=== PATIENT | male | born 1950 | race Caucasian/White ===

== ENCOUNTER 2017-05-09 15:18 | Emergency (ER) | payer MEDICARE ==
[~2017-05-09] VITALS: Ht 180.3 cm; Wt 77.1 kg
[~2017-05-09 15:18] MED LIST: GABA400C PO; METH10OR11 PO
[2017-05-09 15:20] VITALS: BP 124/87
[2017-05-09] MEDS ORDERED: TETRACAINE HCL/PF 0.5% UD 2 ML BOTTLE ONE (16:13)
[2017-05-09] MEDS ORDERED: ACETAMINOPHEN ES 500 MG TABLET ONE (16:13)
[2017-05-09] MEDS ORDERED: FLUORESCEIN SODIUM OPHTH 1 EA STRIP ONE (16:13)
[2017-05-09] MEDS ORDERED: TETRACAINE HCL/PF 0.5% UD 2 ML BOTTLE EACHEYE ONE (16:30)
[2017-05-09] MEDS ORDERED: ACETAMINOPHEN 325 MG TABLET PO ONE (16:30)
[2017-05-09] MEDS ORDERED: FLUORESCEIN SODIUM OPHTH 1 EA STRIP OP ONE (16:30)
--- NOTE | 2017-05-09 16:40 | NUR ---
PT REFUSING VISUAL ACUITY TEST DONE. AGITATED, DEMANDING STRONGER PAIN MEDICATION. STATES HE WANTED TO LEAVE.
--- NOTE | 2017-05-09 16:42 | NUR ---
PT LEFT ED AGAINST [facility].
== END 2017-05-09 16:44 | disposition left against medical advice (07) ==
LOC: ER 15:20
DX: H53.143 Visual discomfort, bilateral (principal); G89.29 Other chronic pain; G35 Multiple sclerosis; Z98.890 Other specified postprocedural states
CPT/HCPCS: 99283; A4606; Z7610

== ENCOUNTER 2017-06-11 22:24 | Emergency (ER) | payer MEDICARE ==
--- NOTE | 2017-06-11 22:30 | NUR ---
CALLED TO TRIAGED BUT NOT IN WAITING AREA
--- NOTE | 2017-06-11 22:48 | NUR ---
NOT IN WAITING AREA. LEFT
== END 2017-06-11 22:50 | disposition left against medical advice (07) ==
LOC: ER 22:27
DX: Z53.21 Procedure and treatment not carried out due to patient leaving prior to being seen by health care provider (principal)

== ENCOUNTER 2017-06-12 01:13 | Emergency (ER) | payer MEDICARE ==
[~2017-06-12] VITALS: Ht 170.2 cm; Wt 79.4 kg
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
--- NOTE | 2017-06-12 01:35 | NUR ---
pt transported to radiology for ct.
--- NOTE | 2017-06-12 01:47 | NUR ---
PT BACK FROM RADIOLOGY. PENDING CT HEAD RESULT.
--- NOTE | 2017-06-12 02:18 | NUR ---
Patient discharged to home in stable condition. Written and verbal after care instructions given. Patient verbalizes understanding of instruction. ambulatory with a steady gait with proper use of walker.
[2017-06-12 02:37] VITALS: BP 136/68
== END 2017-06-12 02:38 | disposition home or self-care (01) ==
LOC: ER 01:15
DX: S01.01XA Laceration without foreign body of scalp, initial encounter (principal); G35 Multiple sclerosis; V89.2XXA Person injured in unspecified motor-vehicle accident, traffic, initial encounter; Y93.89 Activity, other specified; Y92.488 Other paved roadways as the place of occurrence of the external cause; Y99.8 Other external cause status
CPT/HCPCS: 12002; 70450; 99284; A4606; A6403 ×2; Z7610

== ENCOUNTER 2017-06-24 12:46 | Inpatient (IN) | payer MEDICARE ==
[~2017-06-24] VITALS: Ht 172.7 cm; Wt 90.7 kg
[2017-06-24] MEDS ORDERED: MAG HYDROX/AL HYDROX/SIMETH 30 ML UDC ONE (13:02)
[2017-06-24] MEDS: MAG HYDROX/AL HYDROX/SIMETH 30 ML UDC PO ONE ×2 (13:02→13:05)
--- NOTE | 2017-06-24 13:06 | NUR ---
LAB AT FOR BLOOD DRAW. PT REFUSED MED. AWARE.
[2017-06-24 13:16] LABS: BASOPHILS % (AUTO) 0.1 % (0.0-2.0); EOSINOPHILS % (AUTO) 0.1 % (0.0-6.0); HEMATOCRIT 45 % (39-51); LYMPHOCYTES # (AUTO) 0.6 /CMM (0.8-4.8); LYMPHOCYTES % (AUTO) 5.3 % (20.0-44.0); MEAN CORPUSCULAR HEMOGLOBIN 28 PG (26.0-33.0); MEAN CORPUSCULAR HGB CONC 33 g/dl (31.0-36.0); MEAN CORPUSCULAR VOLUME 84 fL (80-96); MONOCYTES # (AUTO) 0.3 /CMM (0.1-1.30); MONOCYTES % (AUTO) 2.5 % (2.0-12.0); NEUTROPHILS # (AUTO) 10.8 /CMM (1.8-8.9); PLATELET COUNT (AUTO) 175 /CMM (150-450); RDW COEFFICIENT OF VARIATION 12.8 (11.5-15.0); RED BLOOD CELL COUNT(AUTO) 5.39 MIL/uL (4.5-6.0); WHITE BLOOD COUNT (AUTO) 11.7 K/uL (4.3-11.0)
--- NOTE | 2017-06-24 13:20 | NUR ---
PT [facility]ANS FOR ABD PAIN FROM HOME. PER PT HE'S BEEN ON OPIODS FOR YEARS ALWAYS HAD CONSTIPATION PROBLEMS. REQUESTS FOR PAIN MEDS. SEEN BY MD FOR EVaL. VSS. SAFETY AND COMFORT MEASURES PROVIDED. WILL MONITOR.
[2017-06-24 13:24] LABS: CALCIUM, SERUM 9.6 mg/dL (8.5-10.1); CARBON DIOXIDE 30 mmol/L (21-32); CHLORIDE 101 mmol/L (98-107); GLUCOSE 140 mg/dL (74-106); POTASSIUM 4.2 mmol/L (3.5-5.1); SODIUM SERUM 138 mmol/L (136-145); UREA NITROGEN, BLOOD 25 mg/dL (7-18)
[2017-06-24 13:29] LABS: ALANINE AMINOTRANSFERASE 22 U/L (12-78); ALBUMIN 4.1 g/dL (3.4-5.0); ALKALINE PHOSPHATASE 123 U/L (46-116); ASPARTATE AMINOTRANSFERASE 19 U/L (15-37); BILIRUBIN,DIRECT 0.1 mg/dL (0.0-0.2); BILIRUBIN,TOTAL 0.6 mg/dL (0.2-1.0); LIPASE 136 U/L (73-393); TOTAL PROTEIN, SERUM 8.2 g/dL (6.4-8.2)
[2017-06-24 13:31] LABS: TROPONIN I < 0.017 ng/mL (0.00-0.056)
[2017-06-24] MEDS ORDERED: ONDANSETRON HCL/PF - ER 4 MG/2 ML VIAL IV ONE (14:30)
[2017-06-24] MEDS ORDERED: IV NS 0.9% 1,000 ML IV ONE (14:30)
--- NOTE | 2017-06-24 14:30 | NUR ---
PT UNABLE TO GIVE URINE SAMPLE.
--- NOTE | 2017-06-24 14:40 | NUR ---
IV ACCESS STARTED. MEDICATED ORDERED.
[2017-06-24] MEDS ORDERED: ONDANSETRON HCL/PF 4 MG/2 ML VIAL ONE (15:21)
[2017-06-24] MEDS ORDERED: IV D5/0.45 NACL 1,000 ML IV ONE (16:00)
[2017-06-24 16:06] LABS: APPEARANCE,URINE Slightly Cloudy (CLEAR); BILIRUBIN,URINE Negative (NEGATIVE); BLOOD, URINE Negative Ery/uL (NEGATIVE); KETONES,URINE Trace (NEGATIVE); LEUKOCYTE ESTERASE ,URINE Large (NEGATIVE); NITRITE, URINE Negative (NEGATIVE); PROTEIN,URINE Trace mg/dl (NEGATIVE); UGLUCOSE Negative (NEGATIVE); UROBILINOGEN,URINE 0.2 EU/dL (0.2)
[2017-06-24 16:08] LABS: COLOR,URINE Dark Yellow (YELLOW)
[2017-06-24 16:12] LABS: BACTERIA,URINE Rare /HPF (None Seen); RBC,URINE 0-3 /HPF (0-2); SQUAMOUS EPITHELIAL CELL,UR Few /HPF (None Seen); WBC,URINE 80-100 /HPF (0-3)
[2017-06-24] MEDS ORDERED: GABA800T2 PO (16:25)
[2017-06-24] MEDS ORDERED: METH10TA2 PO (16:25)
[2017-06-24] MEDS ORDERED: CLON1TAB4 PO (16:25)
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
--- NOTE | 2017-06-24 16:41 | NUR ---
CALLED DIONNA KHAN FOR ADMISSION
[2017-06-24] MEDS ORDERED: HYDROMORPHONE 1 MG/1 ML DISP.SYRIN IV ONE (17:00)
[2017-06-24] MEDS ORDERED: HYDROMORPHONE INJ 2 MG/ML DISP.SYRIN ONE (17:01)
[2017-06-24 18:00] VITALS: BP 104/61
[2017-06-24] MEDS ORDERED: IV NS 0.9% 1,000 ML IV PRN (18:25)
[2017-06-24] MEDS ORDERED: ONDANSETRON HCL/PF 4 MG/2 ML VIAL IVP PRN (18:30)
[2017-06-24] MEDS ORDERED: ENOXAPARIN SODIUM 40 MG/0.4 ML DISP.SYRIN SQ SCH (18:30)
[2017-06-24] MEDS ORDERED: ACETAMINOPHEN 325 MG TABLET PO PRN (18:30)
[2017-06-24] MEDS ORDERED: BISACODYL SUPP (10 MG) 10 MG/SUPP.RECT SUPP.RECT RC PRN (18:30)
[2017-06-24] MEDS ORDERED: LACTULOSE 10 G/15 ML UDC (PYXIS) PO PRN (18:30)
[2017-06-24] MEDS ORDERED: clonazePAM 1 MG TABLET PO PRN (18:30)
[2017-06-24] MEDS ORDERED: NA PHOS,M-B/NA PHOS,DI-BA 1 EA ENEMA RC PRN (18:30)
[2017-06-24] MEDS ORDERED: Z GUARD REMEDY 2 OZ OINT TP PRN (18:30)
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
[2017-06-24] MEDS: METHADONE HCL 10 MG TABLET PO SCH (19:07)
[2017-06-24 20:00] VITALS: BP 121/64
[2017-06-24] MEDS ORDERED: GABAPENTIN 400 MG CAPSULE PO ONE (20:30)
--- NOTE | 2017-06-24 20:32 | NUR ---
RECEIVED PATIENT IN ROOM ALERT ORIENTED X 4 COMPLAIN OF PAIN ASKING FOR NEURONTIN PAGED THE DR AND RECEIVED THE ORDER FOR NEURONTIN 800 MG. WILL CONTINUES TO MONITOR THE PATIENT.
[2017-06-24] MEDS ORDERED: CEFTRIAXONE 1 G in IV D5W 50 ML IV SCH (22:00)
[2017-06-24] MEDS ORDERED: SENNOSIDES 8.6 MG TABLET PO SCH (22:00)
[2017-06-25] MEDS: GABAPENTIN 400 MG CAPSULE PO SCH ×3 (05:57→12:22)
--- NOTE | 2017-06-25 06:38 | NUR ---
NO CHANGES FROM BASE LINE PATIENT REMAIN THE SAME CONDITIONS VITAL SIGN STABLE BREATHING EVEN UNLABORED PAIN MEDICATIONS ADMINISTERED PRESCRIBED. WILL CONTINUES TO MONITOR THE PATIENT WILL ENDORSE TO THE MORNING NURSE TO CONTINUITY OF CARE.
[2017-06-25 07:11] LABS: BASOPHILS % (AUTO) 0.1 % (0.0-2.0); EOSINOPHILS # (AUTO) 0.1 /CMM (0.0-0.7); EOSINOPHILS % (AUTO) 1.9 % (0.0-6.0); HEMATOCRIT 38 % (39-51); HEMOGLOBIN 12.9 g/dL (13.5-17.5); LYMPHOCYTES # (AUTO) 2.1 /CMM (0.8-4.8); LYMPHOCYTES % (AUTO) 28.4 % (20.0-44.0); MEAN CORPUSCULAR HEMOGLOBIN 29 PG (26.0-33.0); MEAN CORPUSCULAR HGB CONC 34 g/dl (31.0-36.0); MEAN CORPUSCULAR VOLUME 86 fL (80-96); MONOCYTES # (AUTO) 0.4 /CMM (0.1-1.30); MONOCYTES % (AUTO) 5.3 % (2.0-12.0); NEUTROPHILS # (AUTO) 4.7 /CMM (1.8-8.9); NEUTROPHILS % (AUTO) 64.3 % (43.0-81.0); PLATELET COUNT (AUTO) 134 /CMM (150-450); RDW COEFFICIENT OF VARIATION 13.7 (11.5-15.0); RED BLOOD CELL COUNT(AUTO) 4.42 MIL/uL (4.5-6.0); WHITE BLOOD COUNT (AUTO) 7.3 K/uL (4.3-11.0)
--- NOTE | 2017-06-25 07:15 | NUR ---
RN OPEN NOTES RECEIVED REPORT FROM SUPERVISOR [employer] RN. PATIENT IS IN BED WITH HIS EYES CLOSED. EASILY AROUSED TO CALLING HIS NAME AND TOUCH. TO NO SIGNS AND SYMPTOMS OF DISTRESS. BED IN LOW POSITION, LOCKED AND TWO SIDE RAILS ARE UP. CALL LIGHT WITHIN REACH FOR SAFETY. WILL CONTINUE TO MONITOR AND ASSESS PATIENT THROUGH OUT MY SHIFT
[2017-06-25 07:19] LABS: ALBUMIN 3.5 g/dL (3.4-5.0); BILIRUBIN,TOTAL 0.7 mg/dL (0.2-1.0); CALCIUM, SERUM 8.7 mg/dL (8.5-10.1); CREATININE 0.9 mg/dL (0.6-1.3); MAGNESIUM 2.2 mg/dL (1.8-2.4); PHOSPHORUS 3.2 mg/dL (2.5-4.9); POTASSIUM 3.6 mmol/L (3.5-5.1)
[2017-06-25 07:30] LABS: THYROID STIMULATING HORMONE 0.895 uIU/mL (0.358-3.74)
[2017-06-25 08:00] VITALS: BP 110/59
[2017-06-25] MEDS: METHADONE HCL 10 MG TABLET PO SCH (08:58)
[2017-06-25] MEDS ORDERED: METHADONE HCL 10 MG TABLET PO SCH (09:00)
[2017-06-25] MEDS ORDERED: BARIUM SULFATE 98% 135 ML SUSP.RECON PO ONE ×2 (09:04→09:16)
[2017-06-25] MEDS ORDERED: DIATR MEGLU/DIATRIZOATE SODIUM 120 ML BOTTLE (GASTROGRAPHIN) ONE ×2 (09:04→09:16)
--- NOTE | 2017-06-25 09:15 | NUR ---
PATIENT IS OFF THE FLOOR FOR SMALL BOWEL FOLLOW THROUGH
--- NOTE | 2017-06-25 10:55 | NUR ---
PATIENT IS BACK TO FLOOR FROM RADIOLOGY
[2017-06-25] MEDS ORDERED: NA PHOS,M-B/NA PHOS,DI-BA 1 EA ENEMA RC ONE (12:30)
[2017-06-25] MEDS ORDERED: FLU VACC QS 2017-18(36MOS+)/PF 0.5 ML DISP.SYRIN IM ONE (13:30)
[2017-06-25] MEDS ORDERED: PNEUMOCOCCAL 23-VAL P-SAC VAC 0.5 ML VIAL SQ ONE (13:30)
[2017-06-25] MEDS ORDERED: CEPH-570 PO (13:45)
--- NOTE | 2017-06-25 16:50 | NUR ---
LEARNING PROGRAM MANAGER NOTES DISCHARGE ORDER RECEIVED AND CARRIED OUT. PATIENT IS LEAVING IN A STABLE CONDITION. NO SIGNS AND SYMPTOMS OF DISTRESS. DENIED PAIN. PATIENT IS ALERT AND ORIENTED. PRESCRIPTION GAVE TO PATIENT. ALL DISCHARGE INSTRUCTION EXPLAINED TO PATIENT AND PATIENT VERBALIZE UNDERSTANDING. ALL PERSONAL BELONGING WITH PATIENT AT TIME OF DISCHARGE. PATIENT SIGNED BOTH DISCHARGE AND BELONGING LIST FORMS; PLACED IN THE CHART. SKIN IS INTACT, NO PICTURES NEEDED. FLU AND PNEUMONIA VACCINES HAS BEEN ADMINISTERED. IV SITE REMOVED. ID BANDS REMOVED. PATIENT PICKED UP BY HIS SON IN A PRIVATE CAR. PATIENT DISCHARGED HOME. NO NEW CONCERNS UPON DISCHARGE.
== END 2017-06-25 16:50 | disposition home or self-care (01) | DRG 389 ==
LOC: ER 12:47 → MEDSG2 17:15
PROVIDERS: ADMIT Nurse Practitioner Acute Care; ATTEND Nurse Practitioner Acute Care
DX: K56.7 Ileus, unspecified (principal); N39.0 Urinary tract infection, site not specified; G35 Multiple sclerosis; G62.9 Polyneuropathy, unspecified; G89.4 Chronic pain syndrome; Z98.890 Other specified postprocedural states; K59.03 Drug induced constipation; T40.3X5A Adverse effect of methadone, initial encounter; Y92.009 Unspecified place in unspecified non-institutional (private) residence as the place of occurrence of the external cause; K56.609 Unspecified intestinal obstruction, unspecified as to partial versus complete obstruction; Z79.899 Other long term (current) drug therapy
CPT/HCPCS: 36415; 74250-TC; 80048-TC; 80053-TC; 80061-TC; 80076-TC; 81000-TC; 83690-TC; 83735-TC; 84100-TC; 84443-TC; 84484-TC; 85025-TC; 87081-TC; 90732; A4606; J0696; J1170; J1650; J2405; J3490; J7030; J7060; Q2036; Q9963; Z7610

== ENCOUNTER 2020-03-13 07:10 | Emergency (ER) | payer MEDICARE ==
[~2020-03-13] VITALS: Ht 170.2 cm; Wt 81.6 kg
[~2020-03-13 07:10] MED LIST changes: +CEPH-570 PO; +CLON1TAB12 PO; -GABA400C PO; +GABA800T11 PO; -METH10OR11 PO; +METH10TA2 PO
[2020-03-13 07:13] VITALS: BP 103/67
--- NOTE | 2020-03-13 09:03 | NUR ---
Patient discharged to home in stable condition. Written and verbal after care instructions given. Patient verbalizes understanding of instruction.
== END 2020-03-13 09:04 | disposition home or self-care (01) ==
LOC: ER 07:13
DX: M54.5 Low back pain (principal); G89.29 Other chronic pain; G35 Multiple sclerosis; Z98.890 Other specified postprocedural states; Z79.899 Other long term (current) drug therapy
CPT/HCPCS: 72131-TC

== ENCOUNTER 2022-04-29 14:56 | Outpatient (CLI) | payer MEDICARE ==
[2022-04-29 15:34] LABS: ABG BASE EXCESS 2.4 mmol/L; ABG OXYGEN SATURATION 94.8 % (92.0-98.5); ABG PCO2 44.9 mmHg (35.0-45.0); ABG PH 7.407 (7.350-7.450); COHb 0.7 % (0.5-1.5); MetHb 0.3 % (0.0-1.5); O2Hb 93.9 % (94.0-97.0); SITE, ABG Right Radial; VENT MODE, BG room air
== END 2022-04-29 23:59 | disposition home or self-care (01) ==
LOC: RAD 14:56
PROVIDERS: ATTEND Internal Medicine Pulmonary Disease
DX: R06.02 Shortness of breath (principal)
CPT/HCPCS: 36600; 71045-TC

== ENCOUNTER 2022-08-26 02:25 | Emergency (ER) | payer MEDICARE ==
[~2022-08-26] VITALS: Ht 170.2 cm; Wt 81.6 kg
[2022-08-26 02:43] VITALS: BP 158/83
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
[2022-08-26] MEDS ORDERED: MORPHINE SULFATE INJ 4 MG/ML DISP.SYRIN ONE (02:50)
[2022-08-26] MEDS ORDERED: MORPHINE SULFATE INJ 2 MG/ML DISP.SYRIN ONE (02:50)
[2022-08-26] MEDS ORDERED: MORPHINE SULFATE INJ 2 MG/ML DISP.SYRIN IV ONE (03:00)
--- NOTE | 2022-08-26 04:40 | NUR ---
[facility] AT PT'S BEDSIDE TO D/C PT HOME. VSS. REPORT GIVEN TO [facility] EMT FOR [facility]
== END 2022-08-26 05:17 | disposition home or self-care (01) ==
LOC: ER 02:26
DX: M25.512 Pain in left shoulder (principal); G89.29 Other chronic pain; G35 Multiple sclerosis; Z98.890 Other specified postprocedural states; Z79.899 Other long term (current) drug therapy; W18.30XA Fall on same level, unspecified, initial encounter; Y93.89 Activity, other specified; Y92.89 Other specified places as the place of occurrence of the external cause; Y99.8 Other external cause status
CPT/HCPCS: 99284; 96372; 73030; 73110; J2270 ×2

== ENCOUNTER 2023-04-14 13:01 | Emergency (ER) | payer MEDICARE ==
[~2023-04-14] VITALS: Ht 170.2 cm; Wt 81.6 kg
[2023-04-14 13:34] VITALS: BP 124/66; TEMP 98.3; O2SAT 95
== END 2023-04-14 17:56 ==
LOC: ER 13:07
DX: M25.561 Pain in right knee (principal); I10 Essential (primary) hypertension; J44.9 Chronic obstructive pulmonary disease, unspecified; Z98.890 Other specified postprocedural states; Z79.899 Other long term (current) drug therapy; Z88.1 Allergy status to other antibiotic agents
CPT/HCPCS: 73564-TC

== ENCOUNTER 2023-08-14 20:19 | Inpatient (IN) | payer MEDICARE, OTHER ==
[~2023-08-14] VITALS: Ht 172.7 cm; Wt 93.0 kg
[2023-08-14] MEDS ORDERED: CEFEPIME 1 GM VIAL ONE (21:31)
[2023-08-14] MEDS: CEFEPIME 1 GM in IV D5W 50 ML IV ONE (21:35)
[2023-08-14] MEDS ORDERED: VANCOMYCIN 1 GM /D5W 250 ML PB IV ONE (21:55)
[2023-08-14 21:59] LABS: BASOPHILS % (AUTO) 0.1 % (0.0-2.0); EOSINOPHILS % (AUTO) 0.2 % (0.0-6.0); HEMATOCRIT 33 % (39-51); HEMOGLOBIN 10.7 g/dL (13.5-17.5); LYMPHOCYTES # (AUTO) 0.7 K/uL (0.8-4.8); LYMPHOCYTES % (AUTO) 5.6 % (20.0-44.0); MEAN CORPUSCULAR HEMOGLOBIN 23 PG (26.0-33.0); MEAN CORPUSCULAR HGB CONC 32 g/dl (31.0-36.0); MEAN CORPUSCULAR VOLUME 74 fL (80-96); MONOCYTES # (AUTO) 0.7 K/uL (0.1-1.30); MONOCYTES % (AUTO) 6.3 % (2.0-12.0); NEUTROPHILS # (AUTO) 10.3 K/uL (1.8-8.9); NEUTROPHILS % (AUTO) 87.8 % (43.0-81.0); PLATELET COUNT (AUTO) 233 K/uL (150-450); RED BLOOD CELL COUNT(AUTO) 4.55 MIL/uL (4.5-6.0); RED CELL DISTRIBUTION WIDTH 17.1 % (11.5-15.0); WHITE BLOOD COUNT (AUTO) 11.7 K/uL (4.3-11.0)
[2023-08-14] MEDS: VANCOMYCIN 1 GM in IV D5W 250 ML IV ONE (22:00)
[2023-08-14 22:13] LABS: APPEARANCE,URINE CLOUDY (CLEAR); BILIRUBIN,URINE 1+ (NEGATIVE); BLOOD, URINE 3+ Ery/uL (NEGATIVE); COLOR,URINE YELLOW (YELLOW); KETONES,URINE NEGATIVE (NEGATIVE); LEUKOCYTE ESTERASE ,URINE 3+ (NEGATIVE); NITRITE, URINE NEGATIVE (NEGATIVE); PH,URINE 8.5 (5.0-8.0); PROTEIN,URINE 2+ mg/dl (NEGATIVE); UGLUCOSE NEGATIVE (NEGATIVE)
[2023-08-14 22:18] LABS: INR 1.21 (0.91-1.10); PROTHROMBIN TIME 12.7 SECS (9.2-11.1)
[2023-08-14 22:22] LABS: ADD URINE CULTURE YES; BACTERIA,URINE 4+ /HPF (None Seen); RBC,URINE 51-80 /HPF (0-2); SQUAMOUS EPITHELIAL CELL,UR 0-2 /HPF (None Seen); TRIPLE PHOSPHATE CRYSTAL,UR Few /HPF (None Seen); WBC,URINE 51-80 /HPF (0-3)
[2023-08-14 22:26] LABS: CALCIUM, SERUM 8.8 mg/dL (8.5-10.1); CARBON DIOXIDE 27 mmol/L (21-32); CHLORIDE 99 mmol/L (98-107); CREATININE 1.4 mg/dL (0.6-1.3); GLUCOSE 120 mg/dL (74-106); POTASSIUM 4.1 mmol/L (3.5-5.1); SODIUM SERUM 136 mmol/L (136-145); UREA NITROGEN, BLOOD 31 mg/dL (7-18)
[2023-08-14] MEDS ORDERED: clonazePAM 1 MG TABLET PO PRN (22:30)
[2023-08-14] MEDS ORDERED: ONDANSETRON HCL/PF 4 MG/2 ML VIAL IVP PRN (22:30)
[2023-08-14 22:32] LABS: ALANINE AMINOTRANSFERASE 17 U/L (12-78); ALBUMIN 2.5 g/dL (3.4-5.0); ALKALINE PHOSPHATASE 94 U/L (46-116); ASPARTATE AMINOTRANSFERASE 25 U/L (15-37); BILIRUBIN,DIRECT 0.2 mg/dL (0.0-0.2); BILIRUBIN,TOTAL 0.6 mg/dL (0.2-1.0); TOTAL PROTEIN, SERUM 7.6 g/dL (6.4-8.2)
[2023-08-14 22:38] LABS: LACTIC ACID 1.1 mmol/L (0.4-2.0)
[2023-08-14 22:58] LABS: ANISOCYTOSIS 1+; BAND % (MANUAL) 2 % (0.0-5.0); BASOPHILS % (MANUAL) 0 % (0.0-2.0); EOSINOPHILS % (MANUAL) 0 % (0-4); HYPOCHROMASIA 1+; LYMPHOCYTES % (MANUAL) 8 % (16-48); MONOCYTES % (MANUAL) 5 % (0-11.0); NEUTROPHILS % (MANUAL) 85 (42-76); OVALOCYTES 1+; PLATELET ESTIMATE ADEQUATE
[2023-08-14 23:42] VITALS: BP 127/59; TEMP 97.5; O2SAT 96
[2023-08-15] MEDS: IV NS 0.9% 1,000 ML IV SCH (00:52)
[2023-08-15] MEDS: CEFTRIAXONE 1 G in IV D5W 50 ML IV SCH (00:52)
[2023-08-15 07:52] LABS: BASOPHILS % (AUTO) 0.2 % (0.0-2.0); EOSINOPHILS % (AUTO) 0.2 % (0.0-6.0); HEMATOCRIT 31 % (39-51); HEMOGLOBIN 9.5 g/dL (13.5-17.5); LYMPHOCYTES # (AUTO) 0.6 K/uL (0.8-4.8); LYMPHOCYTES % (AUTO) 5.1 % (20.0-44.0); MEAN CORPUSCULAR HEMOGLOBIN 23 PG (26.0-33.0); MEAN CORPUSCULAR HGB CONC 31 g/dl (31.0-36.0); MEAN CORPUSCULAR VOLUME 74 fL (80-96); MONOCYTES # (AUTO) 0.8 K/uL (0.1-1.30); NEUTROPHILS # (AUTO) 11.2 K/uL (1.8-8.9); NEUTROPHILS % (AUTO) 88.5 % (43.0-81.0); PLATELET COUNT (AUTO) 206 K/uL (150-450); RED BLOOD CELL COUNT(AUTO) 4.12 MIL/uL (4.5-6.0); RED CELL DISTRIBUTION WIDTH 17.1 % (11.5-15.0); WHITE BLOOD COUNT (AUTO) 12.6 K/uL (4.3-11.0)
[2023-08-15 08:00] VITALS: BP 160/90; TEMP 101.2; O2SAT 97
[2023-08-15] MEDS: CEFTRIAXONE 1GM BAG (ER ONLY) 50 ML IV ONE (08:00)
[2023-08-15 08:25] LABS: ALANINE AMINOTRANSFERASE 12 U/L (12-78); ALBUMIN 2.1 g/dL (3.4-5.0); ALKALINE PHOSPHATASE 92 U/L (46-116); ASPARTATE AMINOTRANSFERASE 26 U/L (15-37); BILIRUBIN,TOTAL 0.6 mg/dL (0.2-1.0); CALCIUM, SERUM 8.4 mg/dL (8.5-10.1); CARBON DIOXIDE 25 mmol/L (21-32); CHLORIDE 100 mmol/L (98-107); GLUCOSE 111 mg/dL (74-106); MAGNESIUM 2.2 mg/dL (1.8-2.4); PHOSPHORUS 3.6 mg/dL (2.5-4.9); SODIUM SERUM 135 mmol/L (136-145); TOTAL PROTEIN, SERUM 6.9 g/dL (6.4-8.2); UREA NITROGEN, BLOOD 26 mg/dL (7-18)
[2023-08-15] MEDS: METHADONE HCL 10 MG TABLET PO SCH (08:46)
[2023-08-15] MEDS: HEPARIN SODIUM, PORCINE 5000 UNITS/1 ML VIAL SQ SCH (08:47)
[2023-08-15] MEDS: hydrALAZINE HCL IV 20 MG VIAL IV PRN (08:48)
[2023-08-15] MEDS: ACETAMINOPHEN 325 MG TABLET PO PRN (08:48)
[2023-08-15] MEDS: GABAPENTIN 400 MG CAPSULE PO SCH (08:53)
[2023-08-15 09:30] VITALS: BP 116/90; TEMP 99; O2SAT 98
[2023-08-15] MEDS ORDERED: FERR325T23 PO (11:52)
[2023-08-15] MEDS ORDERED: CRAN425C6 PO (11:52)
[2023-08-15] MEDS ORDERED: LIDO30AD10 TP (11:52)
[2023-08-15] MEDS ORDERED: [UNRECOGNIZED DRUG - OTHER] TP (11:52)
[2023-08-15] MEDS ORDERED: DOCU100T2 PO (11:52)
[2023-08-15] MEDS ORDERED: MULT1CAP44 PO (11:52)
[2023-08-15] MEDS ORDERED: VITS42.53 TP (11:52)
[2023-08-15] MEDS ORDERED: DORZ10DR11 EACHEYE (11:52)
[2023-08-15] MEDS ORDERED: CITRUCEL PO (11:52)
[2023-08-15] MEDS ORDERED: MULT-213 PO (11:52)
[2023-08-15] MEDS ORDERED: DULO30CA2 PO (11:52)
[2023-08-15] MEDS ORDERED: ZINC50TA69 PO (11:52)
[2023-08-15] MEDS ORDERED: OXYC-128 PO (11:52)
[2023-08-15] MEDS ORDERED: DEXT15DR6 EACHEYE (11:52)
[2023-08-15] MEDS ORDERED: HEPA50007 SQ (11:52)
[2023-08-15] MEDS ORDERED: SENN-261 PO (11:52)
[2023-08-15] MEDS ORDERED: ALLA266C2 TP (11:52)
[2023-08-15] MEDS ORDERED: MAGN400O6 PO (11:52)
[2023-08-15] MEDS ORDERED: DICL100G34 TP (11:52)
[2023-08-15] MEDS ORDERED: CHOL100043 PO (11:52)
[2023-08-15] MEDS ORDERED: LORA10TA68 PO (11:52)
[2023-08-15] MEDS ORDERED: ASCO-352 PO (11:52)
[2023-08-15] MEDS ORDERED: NETA2.5D3 EACHEYE (11:52)
[2023-08-15] MEDS ORDERED: BISA10SU61 RC (11:52)
[2023-08-15] MEDS ORDERED: ACET-2605 PO ×2 (11:52)
[2023-08-15] MEDS ORDERED: ACET650S11 RC (11:52)
[2023-08-15] MEDS ORDERED: ACET-868 PO (11:52)
[2023-08-15 16:06] VITALS: BP 114/71; TEMP 100.4; O2SAT 96
[2023-08-15] MEDS: IV NS 0.9% 1,000 ML IV PRN (17:00)
[2023-08-15 20:00] VITALS: BP 96/58; TEMP 98.4; O2SAT 95
[2023-08-16 07:30] VITALS: BP 115/71; TEMP 100; O2SAT 90
[2023-08-16] MEDS: MUPIROCIN OINT 2% 22 GM TUBE NS SCH (08:56)
[2023-08-17 07:18] LABS: BASOPHILS % (AUTO) 0.1 % (0.0-2.0); EOSINOPHILS # (AUTO) 0.1 K/uL (0.0-0.7); EOSINOPHILS % (AUTO) 1.2 % (0.0-6.0); HEMATOCRIT 30 % (39-51); HEMOGLOBIN 9.4 g/dL (13.5-17.5); LYMPHOCYTES # (AUTO) 0.8 K/uL (0.8-4.8); LYMPHOCYTES % (AUTO) 12.4 % (20.0-44.0); MEAN CORPUSCULAR HEMOGLOBIN 23 PG (26.0-33.0); MEAN CORPUSCULAR HGB CONC 31 g/dl (31.0-36.0); MEAN CORPUSCULAR VOLUME 75 fL (80-96); MONOCYTES # (AUTO) 0.7 K/uL (0.1-1.30); MONOCYTES % (AUTO) 10.2 % (2.0-12.0); NEUTROPHILS # (AUTO) 4.9 K/uL (1.8-8.9); NEUTROPHILS % (AUTO) 76.1 % (43.0-81.0); PLATELET COUNT (AUTO) 179 K/uL (150-450); RED BLOOD CELL COUNT(AUTO) 4.03 MIL/uL (4.5-6.0); RED CELL DISTRIBUTION WIDTH 17.5 % (11.5-15.0); WHITE BLOOD COUNT (AUTO) 6.5 K/uL (4.3-11.0)
[2023-08-17 07:37] LABS: FERRITIN 306 ng/mL (8-388)
[2023-08-17 07:43] LABS: CALCIUM, SERUM 8.6 mg/dL (8.5-10.1); PHOSPHORUS 3.6 mg/dL (2.5-4.9); POTASSIUM 3.9 mmol/L (3.5-5.1)
[2023-08-17 08:36] VITALS: BP 141/66; TEMP 99.1; O2SAT 96
[2023-08-17 09:05] LABS: IRON, SERUM 9 ug/dl (50-175); TOTAL IRON BINDING CAPACITY 165 ug/dl (250-450)
[2023-08-17] MEDS: DAKINS QUARTER STRENGTH (0.125%) 480 ML BOTTLE TOP SCH (12:26)
[2023-08-17] MEDS: THERAHONEY GEL 1.5 OZ TUBE TP SCH (12:26)
[2023-08-17 15:59] VITALS: BP 148/79; TEMP 99.4; O2SAT 96
[2023-08-17] MEDS: ARGININE/GLUTAMINE/CALCIUM BMB 1 EACH POWD.PACK PO SCH (18:13)
[2023-08-17] MEDS: PROSOURCE / PROSTAT (PYXIS) 30 ML UDC PO SCH (18:13)
[2023-08-17] MEDS: MORPHINE SULFATE INJ 2 MG/ML DISP.SYRIN IV PRN (19:49)
[2023-08-17 20:00] VITALS: BP 154/83; TEMP 99.5; O2SAT 95
[2023-08-18 07:07] LABS: BASOPHILS % (AUTO) 0.3 % (0.0-2.0); EOSINOPHILS # (AUTO) 0.2 K/uL (0.0-0.7); EOSINOPHILS % (AUTO) 2.6 % (0.0-6.0); HEMATOCRIT 30 % (39-51); HEMOGLOBIN 9.6 g/dL (13.5-17.5); LYMPHOCYTES # (AUTO) 1.5 K/uL (0.8-4.8); LYMPHOCYTES % (AUTO) 23.1 % (20.0-44.0); MEAN CORPUSCULAR HEMOGLOBIN 23 PG (26.0-33.0); MEAN CORPUSCULAR HGB CONC 32 g/dl (31.0-36.0); MEAN CORPUSCULAR VOLUME 74 fL (80-96); MONOCYTES # (AUTO) 0.8 K/uL (0.1-1.30); NEUTROPHILS # (AUTO) 3.9 K/uL (1.8-8.9); PLATELET COUNT (AUTO) 187 K/uL (150-450); RED CELL DISTRIBUTION WIDTH 16.9 % (11.5-15.0); WHITE BLOOD COUNT (AUTO) 6.4 K/uL (4.3-11.0)
[2023-08-18 07:29] LABS: CALCIUM, SERUM 8.8 mg/dL (8.5-10.1); CARBON DIOXIDE 29 mmol/L (21-32); CHLORIDE 99 mmol/L (98-107); GLUCOSE 99 mg/dL (74-106); MAGNESIUM 1.9 mg/dL (1.8-2.4); PHOSPHORUS 3.5 mg/dL (2.5-4.9); POTASSIUM 3.9 mmol/L (3.5-5.1); SODIUM SERUM 137 mmol/L (136-145); UREA NITROGEN, BLOOD 18 mg/dL (7-18)
[2023-08-18 16:00] VITALS: BP 127/100; TEMP 99.4; O2SAT 94
[2023-08-18 16:05] LABS: HIV-1 p24 ANTIGEN NON REACTIVE (NONREACTIVE); HIV-1/2 ANTIBODY NON REACTIVE (NONREACTIVE)
[2023-08-18 20:00] VITALS: BP 141/64; TEMP 101.5; O2SAT 94
[2023-08-18] MEDS: SENNOSIDES 8.6 MG TABLET PO SCH (21:34)
[2023-08-18] MEDS: PANTOPRAZOLE 40 MG TABLET.DR PO SCH (21:34)
[2023-08-19 07:52] LABS: BASOPHILS % (AUTO) 0.2 % (0.0-2.0); EOSINOPHILS # (AUTO) 0.2 K/uL (0.0-0.7); EOSINOPHILS % (AUTO) 2.6 % (0.0-6.0); HEMATOCRIT 30 % (39-51); HEMOGLOBIN 9.4 g/dL (13.5-17.5); LYMPHOCYTES # (AUTO) 1.3 K/uL (0.8-4.8); LYMPHOCYTES % (AUTO) 14.7 % (20.0-44.0); MEAN CORPUSCULAR HEMOGLOBIN 23 PG (26.0-33.0); MEAN CORPUSCULAR HGB CONC 32 g/dl (31.0-36.0); MEAN CORPUSCULAR VOLUME 74 fL (80-96); MONOCYTES # (AUTO) 0.8 K/uL (0.1-1.30); MONOCYTES % (AUTO) 8.8 % (2.0-12.0); NEUTROPHILS # (AUTO) 6.3 K/uL (1.8-8.9); NEUTROPHILS % (AUTO) 73.7 % (43.0-81.0); PLATELET COUNT (AUTO) 207 K/uL (150-450); RED BLOOD CELL COUNT(AUTO) 4.04 MIL/uL (4.5-6.0); RED CELL DISTRIBUTION WIDTH 16.9 % (11.5-15.0); WHITE BLOOD COUNT (AUTO) 8.6 K/uL (4.3-11.0)
[2023-08-19 08:00] VITALS: BP 124/68; TEMP 99.1; O2SAT 85
[2023-08-19 08:19] LABS: CALCIUM, SERUM 8.9 mg/dL (8.5-10.1); CREATININE 0.9 mg/dL (0.6-1.3); MAGNESIUM 1.8 mg/dL (1.8-2.4); PHOSPHORUS 3.7 mg/dL (2.5-4.9); POTASSIUM 3.8 mmol/L (3.5-5.1)
[2023-08-19] MEDS: FERROUS SULFATE (325 MG) 325 MG/TAB TABLET PO SCH (08:51)
[2023-08-19] MEDS: ASCORBIC ACID 500 MG TABLET PO SCH (08:51)
[2023-08-19] MEDS: DOCUSATE SODIUM 100 MG CAPSULE PO SCH (08:51)
[2023-08-19 15:12] VITALS: BP 102/70; TEMP 98.8
[2023-08-19 15:13] VITALS: BP 127/72; TEMP 98.4; O2SAT 96
[2023-08-19 16:00] VITALS: BP 122/69; TEMP 98.6; O2SAT 94
[2023-08-19 20:00] VITALS: BP 126/60; TEMP 99; O2SAT 93
[2023-08-20 07:30] LABS: BASOPHILS % (AUTO) 0.3 % (0.0-2.0); EOSINOPHILS # (AUTO) 0.2 K/uL (0.0-0.7); EOSINOPHILS % (AUTO) 2.4 % (0.0-6.0); HEMATOCRIT 30 % (39-51); HEMOGLOBIN 9.5 g/dL (13.5-17.5); LYMPHOCYTES # (AUTO) 1.6 K/uL (0.8-4.8); LYMPHOCYTES % (AUTO) 20.9 % (20.0-44.0); MEAN CORPUSCULAR HEMOGLOBIN 24 PG (26.0-33.0); MEAN CORPUSCULAR HGB CONC 32 g/dl (31.0-36.0); MEAN CORPUSCULAR VOLUME 74 fL (80-96); MONOCYTES # (AUTO) 0.7 K/uL (0.1-1.30); NEUTROPHILS % (AUTO) 67.4 % (43.0-81.0); PLATELET COUNT (AUTO) 240 K/uL (150-450); RED BLOOD CELL COUNT(AUTO) 4.03 MIL/uL (4.5-6.0); WHITE BLOOD COUNT (AUTO) 7.5 K/uL (4.3-11.0)
[2023-08-20 07:51] LABS: CALCIUM, SERUM 8.8 mg/dL (8.5-10.1); CREATININE 0.9 mg/dL (0.6-1.3); MAGNESIUM 1.8 mg/dL (1.8-2.4); PHOSPHORUS 3.7 mg/dL (2.5-4.9); POTASSIUM 3.9 mmol/L (3.5-5.1)
[2023-08-20] MEDS: BISACODYL SUPP (10 MG) 10 MG/SUPP.RECT SUPP.RECT RC ONE (08:57)
[2023-08-20 09:00] VITALS: BP 144/68; TEMP 98.4; O2SAT 92
[2023-08-20] MEDS ORDERED: QUETIAPINE FUMARATE 25 MG TABLET PO PRN (09:30)
[2023-08-20 18:23] VITALS: BP 115/56; TEMP 99.3; O2SAT 94
[2023-08-20 20:00] VITALS: BP 129/70; TEMP 98.6; O2SAT 97
[2023-08-21 07:16] LABS: BASOPHILS % (AUTO) 0.4 % (0.0-2.0); EOSINOPHILS # (AUTO) 0.1 K/uL (0.0-0.7); EOSINOPHILS % (AUTO) 1.3 % (0.0-6.0); HEMATOCRIT 30 % (39-51); HEMOGLOBIN 9.5 g/dL (13.5-17.5); LYMPHOCYTES # (AUTO) 1.4 K/uL (0.8-4.8); LYMPHOCYTES % (AUTO) 15.1 % (20.0-44.0); MEAN CORPUSCULAR HEMOGLOBIN 23 PG (26.0-33.0); MEAN CORPUSCULAR HGB CONC 32 g/dl (31.0-36.0); MEAN CORPUSCULAR VOLUME 74 fL (80-96); MONOCYTES # (AUTO) 0.8 K/uL (0.1-1.30); MONOCYTES % (AUTO) 8.7 % (2.0-12.0); NEUTROPHILS # (AUTO) 6.8 K/uL (1.8-8.9); NEUTROPHILS % (AUTO) 74.5 % (43.0-81.0); PLATELET COUNT (AUTO) 270 K/uL (150-450); RED BLOOD CELL COUNT(AUTO) 4.09 MIL/uL (4.5-6.0); RED CELL DISTRIBUTION WIDTH 16.7 % (11.5-15.0); WHITE BLOOD COUNT (AUTO) 9.1 K/uL (4.3-11.0)
[2023-08-21 07:58] LABS: CALCIUM, SERUM 8.9 mg/dL (8.5-10.1); CARBON DIOXIDE 26 mmol/L (21-32); CHLORIDE 99 mmol/L (98-107); CREATININE 0.8 mg/dL (0.6-1.3); GLUCOSE 90 mg/dL (74-106); MAGNESIUM 1.9 mg/dL (1.8-2.4); PHOSPHORUS 3.8 mg/dL (2.5-4.9); POTASSIUM 3.9 mmol/L (3.5-5.1); SODIUM SERUM 137 mmol/L (136-145); UREA NITROGEN, BLOOD 17 mg/dL (7-18)
[2023-08-21 08:41] VITALS: BP 162/78; TEMP 98.4; O2SAT 94
[2023-08-21] MEDS: DULOXETINE HCL 30 MG CAPSULE.DR PO SCH (08:47)
[2023-08-21 16:04] VITALS: BP 165/82
== END 2023-08-21 16:40 | DRG 871 ==
LOC: ER 20:33 → TELE 23:15 → MED 23:33
PROVIDERS: ADMIT Internal Medicine; ATTEND Nurse Practitioner Family
DX: A41.59 Other Gram-negative sepsis (principal); E43 Unspecified severe protein-calorie malnutrition; N17.0 Acute kidney failure with tubular necrosis; G93.41 Metabolic encephalopathy; N39.0 Urinary tract infection, site not specified; F03.93 Unspecified dementia, unspecified severity, with mood disturbance; D68.9 Coagulation defect, unspecified; F03.918 Unspecified dementia, unspecified severity, with other behavioral disturbance; D50.9 Iron deficiency anemia, unspecified; D53.9 Nutritional anemia, unspecified; G89.4 Chronic pain syndrome; I10 Essential (primary) hypertension; J44.9 Chronic obstructive pulmonary disease, unspecified; E88.09 Other disorders of plasma-protein metabolism, not elsewhere classified; F32.A Depression, unspecified; K59.00 Constipation, unspecified; Z87.440 Personal history of urinary (tract) infections; G62.9 Polyneuropathy, unspecified; B96.4 Proteus (mirabilis) (morganii) as the cause of diseases classified elsewhere; Z22.322 Carrier or suspected carrier of Methicillin resistant Staphylococcus aureus; L89.156 Pressure-induced deep tissue damage of sacral region; G35 Multiple sclerosis; F39 Unspecified mood [affective] disorder; Z20.822 Contact with and (suspected) exposure to COVID-19; Z68.31 Body mass index [BMI] 31.0-31.9, adult
CPT/HCPCS: 36415; 71045-TC; 80048-TC; 80053-TC; 80076-TC; 81001; 82607-TC; 82728-TC; 83540-TC; 83605-TC; 83735-TC; 84100-TC; 84484-TC; 85025-TC; 85730-TC; 86803; 87040-TC; 87081-TC; 87086-TC; 87186-TC; 87806; 97110-TC; 97530-TC; A4223; G0378; J0360; J0692; J0696; J1644; J2270; J3370; J7030; J7050; J7060

== ENCOUNTER 2024-04-11 19:03 | Inpatient (IN) | payer OTHER, MEDICARE ==
[~2024-04-11] VITALS: Ht 177.8 cm; Wt 74.4 kg
[~2024-04-11 19:03] MED LIST changes: +ACET-2605 PO; +ACET-868 PO; +ACET650S11 RC; +ALLA266C2 TP; +ASCO-352 PO; +BISA10SU61 RC; -CEPH-570 PO; +CHOL100043 PO; +CITRUCEL PO; -CLON1TAB12 PO; +CRAN425C6 PO; +DEXT15DR6 EACHEYE; +DICL100G34 TP; +DOCU100T2 PO; +DORZ10DR11 EACHEYE; +DULO30CA2 PO; +FERR325T23 PO; +HEPA50007 SQ; +LIDO30AD10 TP; +LORA10TA68 PO; +MAGN400O6 PO; -METH10TA2 PO; +MULT-213 PO; +MULT1CAP44 PO; +NETA2.5D3 EACHEYE; +OXYC-128 PO; +SENN-261 PO; +VITS42.53 TP; +ZINC50TA69 PO; +[UNRECOGNIZED DRUG - OTHER] TP
[2024-04-11] MEDS ORDERED: VANCOMYCIN 1 GM /D5W 250 ML PB IV ONE (19:17)
[2024-04-11] MEDS ORDERED: CEFEPIME 1 GM VIAL ONE (19:17)
[2024-04-11 19:23] LABS: BASOPHILS % (AUTO) 0.1 % (0.0-2.0); EOSINOPHILS % (AUTO) 0.1 % (0.0-6.0); HEMATOCRIT 32 % (39-51); HEMOGLOBIN 10.3 g/dL (13.5-17.5); LYMPHOCYTES # (AUTO) 1.4 K/uL (0.8-4.8); LYMPHOCYTES % (AUTO) 7.6 % (20.0-44.0); MEAN CORPUSCULAR HEMOGLOBIN 27 PG (26.0-33.0); MEAN CORPUSCULAR HGB CONC 33 g/dl (31.0-36.0); MEAN CORPUSCULAR VOLUME 83 fL (80-96); MONOCYTES # (AUTO) 0.8 K/uL (0.1-1.30); MONOCYTES % (AUTO) 4.5 % (2.0-12.0); NEUTROPHILS # (AUTO) 16.3 K/uL (1.8-8.9); NEUTROPHILS % (AUTO) 87.7 % (43.0-81.0); PLATELET COUNT (AUTO) 430 K/uL (150-450); RED CELL DISTRIBUTION WIDTH 14.3 % (11.5-15.0); WHITE BLOOD COUNT (AUTO) 18.6 K/uL (4.3-11.0)
[2024-04-11] MEDS: CEFEPIME 2 GM in IV D5W 50 ML IV ONE (19:28)
[2024-04-11] MEDS: VANCOMYCIN 1 GM in IV D5W 250 ML IV ONE (19:28)
[2024-04-11] MEDS: IV NS 0.9% 1,000 ML BAG IV ONE (19:28)
[2024-04-11 19:36] LABS: INR 1.29 (0.91-1.10); PARTIAL THROMBOPLASTIN TIME 33.6 SEC (24.3-34.3); PROTHROMBIN TIME 13.4 SECS (9.2-11.1)
[2024-04-11 19:44] LABS: CALCIUM, SERUM 8.8 mg/dL (8.5-10.1); CARBON DIOXIDE 30 mmol/L (21-32); CHLORIDE 104 mmol/L (98-107); CREATININE 0.9 mg/dL (0.6-1.3); GLUCOSE 111 mg/dL (74-106); POTASSIUM 4.3 mmol/L (3.5-5.1); SODIUM SERUM 140 mmol/L (136-145); UREA NITROGEN, BLOOD 19 mg/dL (7-18)
[2024-04-11 19:51] LABS: ALANINE AMINOTRANSFERASE 30 U/L (12-78); ALBUMIN 1.9 g/dL (3.4-5.0); ALKALINE PHOSPHATASE 152 U/L (46-116); ASPARTATE AMINOTRANSFERASE 43 U/L (15-37); BILIRUBIN,DIRECT 0.2 mg/dL (0.0-0.2); BILIRUBIN,TOTAL 0.5 mg/dL (0.2-1.0); TOTAL PROTEIN, SERUM 7.3 g/dL (6.4-8.2)
[2024-04-11 19:55] LABS: LACTIC ACID 1.1 mmol/L (0.4-2.0)
[2024-04-11 20:02] LABS: APPEARANCE,URINE Cloudy (CLEAR); BILIRUBIN,URINE SMALL (NEGATIVE); BLOOD, URINE Small Ery/uL (NEGATIVE); COLOR,URINE YELLOW (YELLOW); KETONES,URINE Negative (NEGATIVE); LEUKOCYTE ESTERASE ,URINE Negative (NEGATIVE); NITRITE, URINE Negative (NEGATIVE); PROTEIN,URINE 100 mg/dl (NEGATIVE); UGLUCOSE Negative (NEGATIVE); UROBILINOGEN,URINE 0.2 EU/dL (0.2)
[2024-04-11 20:27] LABS: ADD URINE CULTURE YES; BACTERIA,URINE Many /HPF (None Seen); SQUAMOUS EPITHELIAL CELL,UR Few /HPF (None Seen)
[2024-04-11] MEDS ORDERED: MAGNESIUM HYDROXIDE 30 ML UDC PO PRN (21:00)
[2024-04-11] MEDS ORDERED: Z GUARD REMEDY 4 OZ OINT TP PRN (21:00)
[2024-04-11] MEDS ORDERED: oxyCODONE/APAP (5/325 MG) 1 UDTAB TABLET PO PRN (21:00)
[2024-04-11] MEDS ORDERED: MAG HYDROX/AL HYDROX/SIMETH 30 ML UDC PO PRN (21:00)
[2024-04-11] MEDS: VITAMINS A AND D 56.7 GM TUBE TP SCH (21:00)
[2024-04-11] MEDS ORDERED: ONDANSETRON HCL/PF 4 MG/2 ML VIAL IVP PRN (21:00)
[2024-04-11] MEDS ORDERED: NOREPINEPHRINE 8MG/250ML RTU 250 ML IV ONE (21:57)
[2024-04-11] MEDS ORDERED: Medication Not On Formulary EA (Netarsudil Mesylat/Latanoprost (Rocklatan 0.02%-0.005% E EACHEYE SCH (22:00)
[2024-04-11] MEDS: NOREPINEPHRINE 8 MG in IV D5W 242 ML IV PRN (22:07)
[2024-04-11] MEDS ORDERED: KETOROLAC TROMETHAMINE INJ 30 MG/ML VIAL IM PRN (22:30)
[2024-04-11 23:44] VITALS: BP 125/68; TEMP 98
[2024-04-12] VITALS (82 sets, daily range): BP systolic 59–179; BP diastolic 43–112; TEMP 97–98.2; O2SAT 87–100
[2024-04-12] MEDS: LIDOCAINE 5% (PATCH) 1 EA PATCH TP SCH (00:12)
[2024-04-12] MEDS: ENOXAPARIN SODIUM 40 MG/0.4 ML DISP.SYRIN SQ SCH (00:12)
[2024-04-12] MEDS ORDERED: CEFEPIME 1 GM VIAL ONE (02:54)
[2024-04-12 04:48] LABS: BASOPHILS % (AUTO) 0.2 % (0.0-2.0); EOSINOPHILS # (AUTO) 0.1 K/uL (0.0-0.7); EOSINOPHILS % (AUTO) 0.7 % (0.0-6.0); HEMATOCRIT 29 % (39-51); HEMOGLOBIN 9.4 g/dL (13.5-17.5); LYMPHOCYTES # (AUTO) 1.9 K/uL (0.8-4.8); LYMPHOCYTES % (AUTO) 11.3 % (20.0-44.0); MEAN CORPUSCULAR HEMOGLOBIN 28 PG (26.0-33.0); MEAN CORPUSCULAR HGB CONC 33 g/dl (31.0-36.0); MEAN CORPUSCULAR VOLUME 84 fL (80-96); MONOCYTES # (AUTO) 1.3 K/uL (0.1-1.30); NEUTROPHILS % (AUTO) 79.8 % (43.0-81.0); PLATELET COUNT (AUTO) 450 K/uL (150-450); RED BLOOD CELL COUNT(AUTO) 3.42 MIL/uL (4.5-6.0); WHITE BLOOD COUNT (AUTO) 16.3 K/uL (4.3-11.0)
[2024-04-12] MEDS: CEFEPIME 2 GM in IV D5W 100 ML IV SCH (04:57)
[2024-04-12 05:36] LABS: CALCIUM, SERUM 8.6 mg/dL (8.5-10.1); CARBON DIOXIDE 29 mmol/L (21-32); CHLORIDE 106 mmol/L (98-107); CREATININE 0.7 mg/dL (0.6-1.3); GLUCOSE 141 mg/dL (74-106); MAGNESIUM 1.8 mg/dL (1.8-2.4); PHOSPHORUS 2.9 mg/dL (2.5-4.9); POTASSIUM 3.5 mmol/L (3.5-5.1); SODIUM SERUM 143 mmol/L (136-145); UREA NITROGEN, BLOOD 18 mg/dL (7-18)
[2024-04-12] MEDS: IV NS 0.9% 250 ML IV PRN (06:38)
[2024-04-12] MEDS: VANCOMYCIN 1 GM in IV D5W 250ml IV SCH (07:56)
[2024-04-12] MEDS: DAKINS QUARTER STRENGTH (0.125%) 480 ML BOTTLE TOP SCH (09:00)
[2024-04-12] MEDS: MULTIVIT W/MINERALS 1 TAB TABLET PO SCH ×2 (09:00→09:37)
[2024-04-12] MEDS ORDERED: Medication Not On Formulary EA (Cranberry Extract (Cranberry) 425 MG) PO SCH (09:00)
[2024-04-12] MEDS: PANTOPRAZOLE 40 MG VIAL IV SCH (09:36)
[2024-04-12] MEDS: DULOXETINE HCL 30 MG CAPSULE.DR PO SCH (09:36)
[2024-04-12] MEDS: LORATADINE 10 MG TABLET PO SCH (09:36)
[2024-04-12] MEDS: CHOLECALCIFEROL 1,000 UNIT TABLET (VIT D3) PO SCH (09:37)
[2024-04-12] MEDS: GABAPENTIN 400 MG CAPSULE PO SCH (09:37)
[2024-04-12] MEDS: DOCUSATE SODIUM 100 MG CAPSULE PO SCH (09:37)
[2024-04-12] MEDS: ASCORBIC ACID 500 MG TABLET PO SCH (09:37)
[2024-04-12] MEDS: ZINC SULFATE 220 MG CAPSULE PO SCH (09:37)
[2024-04-12] MEDS: FERROUS SULFATE (325 MG) 325 MG/TAB TABLET PO SCH (09:37)
[2024-04-12] MEDS: DICLOFENAC TOPICAL 100 GM TUBE TP SCH (09:38)
[2024-04-12] MEDS: TIMOLOL MAL/DORZOLAM HCL OPHTH 10 ML BOTTLE EACHEYE SCH (09:38)
[2024-04-12] MEDS: POLYVINYL ALCOHOL 15 ML BOTTLE EACHEYE SCH (13:00)
[2024-04-12] MEDS: KETOROLAC TROMETHAMINE INJ 30 MG/ML VIAL IV PRN (18:34)
[2024-04-12] MEDS: LATANOPROST EYE DROP 0.005% 2.5 ML BOTTLE EACHEYE SCH (23:35)
[2024-04-13] VITALS (88 sets, daily range): BP systolic 65–178; BP diastolic 40–112; TEMP 96.5–98.3; O2SAT 87–100
[2024-04-13 04:40] LABS: BASOPHILS % (AUTO) 0.2 % (0.0-2.0); EOSINOPHILS # (AUTO) 0.4 K/uL (0.0-0.7); EOSINOPHILS % (AUTO) 3.7 % (0.0-6.0); HEMATOCRIT 28 % (39-51); HEMOGLOBIN 8.9 g/dL (13.5-17.5); LYMPHOCYTES # (AUTO) 1.1 K/uL (0.8-4.8); LYMPHOCYTES % (AUTO) 11.5 % (20.0-44.0); MEAN CORPUSCULAR HEMOGLOBIN 27 PG (26.0-33.0); MEAN CORPUSCULAR HGB CONC 32 g/dl (31.0-36.0); MEAN CORPUSCULAR VOLUME 84 fL (80-96); MONOCYTES # (AUTO) 0.8 K/uL (0.1-1.30); MONOCYTES % (AUTO) 8.4 % (2.0-12.0); NEUTROPHILS # (AUTO) 7.4 K/uL (1.8-8.9); NEUTROPHILS % (AUTO) 76.2 % (43.0-81.0); PLATELET COUNT (AUTO) 307 K/uL (150-450); RED BLOOD CELL COUNT(AUTO) 3.35 MIL/uL (4.5-6.0); RED CELL DISTRIBUTION WIDTH 14.4 % (11.5-15.0); WHITE BLOOD COUNT (AUTO) 9.7 K/uL (4.3-11.0)
[2024-04-13 04:55] LABS: CALCIUM, SERUM 8.6 mg/dL (8.5-10.1); CARBON DIOXIDE 29 mmol/L (21-32); CHLORIDE 104 mmol/L (98-107); CREATININE 0.8 mg/dL (0.6-1.3); GLUCOSE 116 mg/dL (74-106); MAGNESIUM 1.7 mg/dL (1.8-2.4); PHOSPHORUS 3.2 mg/dL (2.5-4.9); POTASSIUM 3.9 mmol/L (3.5-5.1); SODIUM SERUM 140 mmol/L (136-145); UREA NITROGEN, BLOOD 17 mg/dL (7-18)
[2024-04-13] MEDS: PANTOPRAZOLE 40 MG TABLET.DR PO SCH (08:36)
[2024-04-13] MEDS: MAGNESIUM OXIDE 400 MG TABLET PO ONE (11:21)
[2024-04-13] MEDS: IV NS 0.9% 1,000 ML IV SCH (14:52)
[2024-04-13] MEDS: AMMONIUM LACTATE 227 GM BOTTLE TP SCH (16:07)
[2024-04-13] MEDS: HYDROCODONE/APAP 5/325MG TABLET PO PRN (16:54)
[2024-04-13] MEDS: ARGININE/GLUTAMINE/CALCIUM BMB 1 EACH POWD.PACK PO SCH (17:00)
[2024-04-13] MEDS: ENSURE ENLIVE 237 ML LIQUID (VANILLA) PO SCH (17:00)
[2024-04-13] MEDS ORDERED: VANCOMYCIN HCL 1.25 GM in IV D5W 250 ML IV SCH (20:00)
[2024-04-14] VITALS (50 sets, daily range): BP systolic 79–188; BP diastolic 44–160; TEMP 97.9–98.3; O2SAT 82–100
[2024-04-14 04:24] LABS: BASOPHILS % (AUTO) 0.2 % (0.0-2.0); EOSINOPHILS # (AUTO) 0.4 K/uL (0.0-0.7); EOSINOPHILS % (AUTO) 4.2 % (0.0-6.0); HEMATOCRIT 28 % (39-51); HEMOGLOBIN 8.9 g/dL (13.5-17.5); LYMPHOCYTES # (AUTO) 1.2 K/uL (0.8-4.8); LYMPHOCYTES % (AUTO) 11.3 % (20.0-44.0); MEAN CORPUSCULAR HEMOGLOBIN 27 PG (26.0-33.0); MEAN CORPUSCULAR HGB CONC 33 g/dl (31.0-36.0); MEAN CORPUSCULAR VOLUME 84 fL (80-96); MONOCYTES # (AUTO) 0.8 K/uL (0.1-1.30); MONOCYTES % (AUTO) 7.5 % (2.0-12.0); NEUTROPHILS % (AUTO) 76.8 % (43.0-81.0); PLATELET COUNT (AUTO) 322 K/uL (150-450); RED BLOOD CELL COUNT(AUTO) 3.26 MIL/uL (4.5-6.0); RED CELL DISTRIBUTION WIDTH 14.1 % (11.5-15.0); WHITE BLOOD COUNT (AUTO) 10.4 K/uL (4.3-11.0)
[2024-04-14 05:08] LABS: ALANINE AMINOTRANSFERASE 21 U/L (12-78); ALBUMIN 1.5 g/dL (3.4-5.0); ALKALINE PHOSPHATASE 131 U/L (46-116); ASPARTATE AMINOTRANSFERASE 26 U/L (15-37); BILIRUBIN,TOTAL 0.3 mg/dL (0.2-1.0); CALCIUM, SERUM 8.8 mg/dL (8.5-10.1); CARBON DIOXIDE 29 mmol/L (21-32); CHLORIDE 105 mmol/L (98-107); CREATININE 0.8 mg/dL (0.6-1.3); GLUCOSE 112 mg/dL (74-106); MAGNESIUM 1.9 mg/dL (1.8-2.4); PHOSPHORUS 2.7 mg/dL (2.5-4.9); POTASSIUM 3.9 mmol/L (3.5-5.1); SODIUM SERUM 140 mmol/L (136-145); TOTAL PROTEIN, SERUM 6.4 g/dL (6.4-8.2); UREA NITROGEN, BLOOD 18 mg/dL (7-18)
[2024-04-14] MEDS: VANCOMYCIN 750 MG in IV D5W 250 ML IV SCH (08:04)
[2024-04-14] MEDS: MIDODRINE HCL (5MG) 5 MG TABLET PO SCH (14:03)
[2024-04-15] VITALS (27 sets, daily range): BP systolic 82–152; BP diastolic 47–103; TEMP 96.5–98; O2SAT 93–98
[2024-04-15 04:44] LABS: BASOPHILS % (AUTO) 0.3 % (0.0-2.0); EOSINOPHILS # (AUTO) 0.5 K/uL (0.0-0.7); EOSINOPHILS % (AUTO) 6.3 % (0.0-6.0); HEMATOCRIT 28 % (39-51); HEMOGLOBIN 9.2 g/dL (13.5-17.5); LYMPHOCYTES # (AUTO) 1.7 K/uL (0.8-4.8); LYMPHOCYTES % (AUTO) 20.8 % (20.0-44.0); MEAN CORPUSCULAR HEMOGLOBIN 27 PG (26.0-33.0); MEAN CORPUSCULAR HGB CONC 32 g/dl (31.0-36.0); MEAN CORPUSCULAR VOLUME 84 fL (80-96); MONOCYTES # (AUTO) 0.6 K/uL (0.1-1.30); MONOCYTES % (AUTO) 7.4 % (2.0-12.0); NEUTROPHILS # (AUTO) 5.2 K/uL (1.8-8.9); NEUTROPHILS % (AUTO) 65.2 % (43.0-81.0); PLATELET COUNT (AUTO) 308 K/uL (150-450); RED BLOOD CELL COUNT(AUTO) 3.36 MIL/uL (4.5-6.0); RED CELL DISTRIBUTION WIDTH 14.6 % (11.5-15.0)
[2024-04-15 05:07] LABS: ALANINE AMINOTRANSFERASE 19 U/L (12-78); ALBUMIN 1.6 g/dL (3.4-5.0); ALKALINE PHOSPHATASE 135 U/L (46-116); ASPARTATE AMINOTRANSFERASE 25 U/L (15-37); BILIRUBIN,TOTAL 0.2 mg/dL (0.2-1.0); CARBON DIOXIDE 28 mmol/L (21-32); CHLORIDE 107 mmol/L (98-107); CREATININE 0.8 mg/dL (0.6-1.3); GLUCOSE 95 mg/dL (74-106); MAGNESIUM 1.9 mg/dL (1.8-2.4); POTASSIUM 4.6 mmol/L (3.5-5.1); SODIUM SERUM 142 mmol/L (136-145); TOTAL PROTEIN, SERUM 6.5 g/dL (6.4-8.2); UREA NITROGEN, BLOOD 19 mg/dL (7-18)
[2024-04-15] MEDS: BISACODYL SUPP (10 MG) 10 MG/SUPP.RECT SUPP.RECT RC PRN (16:42)
[2024-04-16] VITALS: BP 132/87; TEMP 97.9; O2SAT 94
[2024-04-16 00:10] VITALS: BP 132/87; TEMP 97.9; O2SAT 94
[2024-04-16 04:00] VITALS: BP 147/71; TEMP 98.2; O2SAT 94
[2024-04-16 04:15] VITALS: BP 147/71; TEMP 98.2; O2SAT 94
[2024-04-16 06:53] LABS: BASOPHILS % (AUTO) 0.6 % (0.0-2.0); EOSINOPHILS # (AUTO) 0.4 K/uL (0.0-0.7); EOSINOPHILS % (AUTO) 5.3 % (0.0-6.0); HEMATOCRIT 29 % (39-51); HEMOGLOBIN 9.1 g/dL (13.5-17.5); LYMPHOCYTES # (AUTO) 1.6 K/uL (0.8-4.8); LYMPHOCYTES % (AUTO) 21.1 % (20.0-44.0); MEAN CORPUSCULAR HEMOGLOBIN 27 PG (26.0-33.0); MEAN CORPUSCULAR HGB CONC 32 g/dl (31.0-36.0); MEAN CORPUSCULAR VOLUME 84 fL (80-96); MONOCYTES # (AUTO) 0.5 K/uL (0.1-1.30); MONOCYTES % (AUTO) 6.4 % (2.0-12.0); NEUTROPHILS % (AUTO) 66.6 % (43.0-81.0); PLATELET COUNT (AUTO) 354 K/uL (150-450); RED BLOOD CELL COUNT(AUTO) 3.43 MIL/uL (4.5-6.0); RED CELL DISTRIBUTION WIDTH 14.7 % (11.5-15.0); WHITE BLOOD COUNT (AUTO) 7.5 K/uL (4.3-11.0)
[2024-04-16 07:30] LABS: ALANINE AMINOTRANSFERASE 15 U/L (12-78); ALBUMIN 1.6 g/dL (3.4-5.0); ALKALINE PHOSPHATASE 125 U/L (46-116); ASPARTATE AMINOTRANSFERASE 20 U/L (15-37); BILIRUBIN,TOTAL 0.3 mg/dL (0.2-1.0); CALCIUM, SERUM 8.8 mg/dL (8.5-10.1); CARBON DIOXIDE 26 mmol/L (21-32); CHLORIDE 108 mmol/L (98-107); CREATININE 0.7 mg/dL (0.6-1.3); GLUCOSE 99 mg/dL (74-106); POTASSIUM 4.3 mmol/L (3.5-5.1); SODIUM SERUM 143 mmol/L (136-145); TOTAL PROTEIN, SERUM 6.3 g/dL (6.4-8.2); UREA NITROGEN, BLOOD 17 mg/dL (7-18)
[2024-04-16 20:00] VITALS: BP 115/65; TEMP 97.7; O2SAT 97
[2024-04-16] MEDS: VANCOMYCIN 1 GM in IV D5W 250ml IV SCH (20:00)
[2024-04-17] VITALS: BP 106/51; TEMP 97.9; O2SAT 97
[2024-04-17 04:00] VITALS: BP 176/86; TEMP 98.3; O2SAT 96
[2024-04-17 07:25] LABS: BASOPHILS % (AUTO) 0.2 % (0.0-2.0); EOSINOPHILS # (AUTO) 0.4 K/uL (0.0-0.7); EOSINOPHILS % (AUTO) 5.2 % (0.0-6.0); HEMATOCRIT 31 % (39-51); HEMOGLOBIN 9.9 g/dL (13.5-17.5); LYMPHOCYTES # (AUTO) 1.6 K/uL (0.8-4.8); LYMPHOCYTES % (AUTO) 21.7 % (20.0-44.0); MEAN CORPUSCULAR HEMOGLOBIN 26 PG (26.0-33.0); MEAN CORPUSCULAR HGB CONC 32 g/dl (31.0-36.0); MEAN CORPUSCULAR VOLUME 83 fL (80-96); MONOCYTES # (AUTO) 0.5 K/uL (0.1-1.30); MONOCYTES % (AUTO) 6.9 % (2.0-12.0); NEUTROPHILS # (AUTO) 4.9 K/uL (1.8-8.9); PLATELET COUNT (AUTO) 382 K/uL (150-450); RED BLOOD CELL COUNT(AUTO) 3.77 MIL/uL (4.5-6.0); RED CELL DISTRIBUTION WIDTH 14.6 % (11.5-15.0); WHITE BLOOD COUNT (AUTO) 7.5 K/uL (4.3-11.0)
[2024-04-17 07:30] VITALS: BP 119/61; TEMP 97.5; O2SAT 96
[2024-04-17] MEDS: LIDOCAINE 1%-EPI 1:100,000 20 ML VIAL TP ONE (08:30)
[2024-04-17 08:35] LABS: ALANINE AMINOTRANSFERASE 17 U/L (12-78); ALBUMIN 1.9 g/dL (3.4-5.0); ALKALINE PHOSPHATASE 130 U/L (46-116); ASPARTATE AMINOTRANSFERASE 21 U/L (15-37); BILIRUBIN,TOTAL 0.3 mg/dL (0.2-1.0); CALCIUM, SERUM 9.2 mg/dL (8.5-10.1); CARBON DIOXIDE 28 mmol/L (21-32); CHLORIDE 106 mmol/L (98-107); CREATININE 0.7 mg/dL (0.6-1.3); GLUCOSE 86 mg/dL (74-106); MAGNESIUM 2.1 mg/dL (1.8-2.4); PHOSPHORUS 3.1 mg/dL (2.5-4.9); SODIUM SERUM 143 mmol/L (136-145); UREA NITROGEN, BLOOD 16 mg/dL (7-18)
[2024-04-17] MEDS: VANCOMYCIN 1 GM in IV D5W 250ml IV SCH (11:18)
[2024-04-17] MEDS: SILVER NITRATE APPLICATOR 1 EA BOX TP ONE (13:46)
[2024-04-17] MEDS: HYDROCODONE/APAP 10/325MG TABLET PO PRN (15:20)
[2024-04-17 16:00] VITALS: BP 128/59; TEMP 97.3; O2SAT 96
[2024-04-17 20:00] VITALS: BP 141/92; TEMP 97.3; O2SAT 97
[2024-04-17] MEDS: clonazePAM 0.5 MG TABLET PO PRN (20:13)
[2024-04-17 20:37] VITALS: BP 141/92; TEMP 97.3; O2SAT 97
[2024-04-17] MEDS: IV NS 0.9% 1,000 ML IV PRN (22:31)
[2024-04-18] VITALS (7 sets, daily range): BP systolic 118–172; BP diastolic 62–107; TEMP 97.2–97.7; O2SAT 95–96
[2024-04-18 13:44] LABS: CALCIUM, SERUM 9.6 mg/dL (8.5-10.1); CARBON DIOXIDE 28 mmol/L (21-32); CHLORIDE 103 mmol/L (98-107); CREATININE 0.9 mg/dL (0.6-1.3); GLUCOSE 104 mg/dL (74-106); POTASSIUM 4.3 mmol/L (3.5-5.1); SODIUM SERUM 140 mmol/L (136-145); UREA NITROGEN, BLOOD 17 mg/dL (7-18)
[2024-04-19 07:02] LABS: CALCIUM, SERUM 8.6 mg/dL (8.5-10.1); CARBON DIOXIDE 30 mmol/L (21-32); CHLORIDE 104 mmol/L (98-107); CREATININE 0.7 mg/dL (0.6-1.3); GLUCOSE 93 mg/dL (74-106); POTASSIUM 3.5 mmol/L (3.5-5.1); SODIUM SERUM 140 mmol/L (136-145); UREA NITROGEN, BLOOD 15 mg/dL (7-18)
[2024-04-19 08:00] VITALS: BP 140/96; TEMP 97.8; O2SAT 98
[2024-04-19] MEDS: VANCOMYCIN 750 MG in IV D5W 250 ML IV SCH (13:46)
[2024-04-19 15:29] VITALS: BP 119/106; TEMP 97.5; O2SAT 97
[2024-04-19 16:00] VITALS: BP 126/74; TEMP 98.3; O2SAT 96
[2024-04-19 16:21] LABS: ABG BASE EXCESS 1.1 mmol/L (-2.0-3.0); ABG OXYGEN SATURATION 95.3 % (94.0-98.0); ABG PCO2 39.2 mmHg (35.0-48.0); ABG PO2 77.1 mmHg (83.0-108.0); ABG TOTAL HEMOGLOBIN 10.5 G/dL (13.5-17.5); MetHb 0.3 % (0.0-1.5); SITE, ABG RIGHT RADIAL
[2024-04-19 16:51] LABS: BASOPHILS % (AUTO) 0.3 % (0.0-2.0); EOSINOPHILS # (AUTO) 0.5 K/uL (0.0-0.7); EOSINOPHILS % (AUTO) 6.3 % (0.0-6.0); HEMATOCRIT 31 % (39-51); HEMOGLOBIN 9.6 g/dL (13.5-17.5); LYMPHOCYTES # (AUTO) 1.2 K/uL (0.8-4.8); LYMPHOCYTES % (AUTO) 15.3 % (20.0-44.0); MEAN CORPUSCULAR HEMOGLOBIN 26 PG (26.0-33.0); MEAN CORPUSCULAR HGB CONC 31 g/dl (31.0-36.0); MEAN CORPUSCULAR VOLUME 84 fL (80-96); MONOCYTES # (AUTO) 0.6 K/uL (0.1-1.30); MONOCYTES % (AUTO) 7.6 % (2.0-12.0); NEUTROPHILS # (AUTO) 5.7 K/uL (1.8-8.9); NEUTROPHILS % (AUTO) 70.5 % (43.0-81.0); PLATELET COUNT (AUTO) 334 K/uL (150-450); RED BLOOD CELL COUNT(AUTO) 3.67 MIL/uL (4.5-6.0); WHITE BLOOD COUNT (AUTO) 8.1 K/uL (4.3-11.0)
[2024-04-19 17:03] LABS: ALANINE AMINOTRANSFERASE 17 U/L (12-78); ALBUMIN 1.8 g/dL (3.4-5.0); ALKALINE PHOSPHATASE 125 U/L (46-116); ASPARTATE AMINOTRANSFERASE 22 U/L (15-37); BILIRUBIN,TOTAL 0.3 mg/dL (0.2-1.0); CALCIUM, SERUM 8.7 mg/dL (8.5-10.1); CARBON DIOXIDE 29 mmol/L (21-32); CHLORIDE 105 mmol/L (98-107); CREATININE 0.7 mg/dL (0.6-1.3); GLUCOSE 119 mg/dL (74-106); POTASSIUM 3.6 mmol/L (3.5-5.1); SODIUM SERUM 142 mmol/L (136-145); TOTAL PROTEIN, SERUM 6.8 g/dL (6.4-8.2); UREA NITROGEN, BLOOD 15 mg/dL (7-18)
[2024-04-19 20:00] VITALS: BP 143/91; TEMP 97.7; O2SAT 97
[2024-04-20 08:00] VITALS: BP 144/130; TEMP 97.5; O2SAT 98
[2024-04-20] MEDS: SENNOSIDES 8.6 MG TABLET PO PRN (09:56)
[2024-04-20] MEDS: OLANZAPINE ZYDIS 5 MG TAB.RAPDIS PO PRN (11:55)
[2024-04-20] MEDS: DULOXETINE HCL 30 MG CAPSULE.DR PO SCH (15:37)
[2024-04-20 16:00] VITALS: BP 94/63; TEMP 97.9; O2SAT 98
[2024-04-20] MEDS: OLANZAPINE 10 MG VIAL IM STA (16:02)
[2024-04-20 20:00] VITALS: BP 132/81; TEMP 98.1; O2SAT 97
[2024-04-20] MEDS: THERAHONEY GEL 1.5 OZ TUBE TP SCH (20:27)
[2024-04-21 08:00] VITALS: BP 120/95; TEMP 98; O2SAT 98
[2024-04-21 10:44] LABS: BASOPHILS % (AUTO) 0.4 % (0.0-2.0); EOSINOPHILS # (AUTO) 0.4 K/uL (0.0-0.7); HEMATOCRIT 35 % (39-51); HEMOGLOBIN 10.8 g/dL (13.5-17.5); LYMPHOCYTES # (AUTO) 1.3 K/uL (0.8-4.8); LYMPHOCYTES % (AUTO) 18.5 % (20.0-44.0); MEAN CORPUSCULAR HEMOGLOBIN 26 PG (26.0-33.0); MEAN CORPUSCULAR HGB CONC 31 g/dl (31.0-36.0); MEAN CORPUSCULAR VOLUME 84 fL (80-96); MONOCYTES # (AUTO) 0.4 K/uL (0.1-1.30); MONOCYTES % (AUTO) 6.2 % (2.0-12.0); NEUTROPHILS # (AUTO) 4.9 K/uL (1.8-8.9); NEUTROPHILS % (AUTO) 68.9 % (43.0-81.0); PLATELET COUNT (AUTO) 300 K/uL (150-450); RED CELL DISTRIBUTION WIDTH 15.6 % (11.5-15.0); WHITE BLOOD COUNT (AUTO) 7.2 K/uL (4.3-11.0)
[2024-04-21 11:05] LABS: ALANINE AMINOTRANSFERASE 16 U/L (12-78); ALKALINE PHOSPHATASE 132 U/L (46-116); ASPARTATE AMINOTRANSFERASE 21 U/L (15-37); BILIRUBIN,TOTAL 0.3 mg/dL (0.2-1.0); CALCIUM, SERUM 9.3 mg/dL (8.5-10.1); CARBON DIOXIDE 31 mmol/L (21-32); CHLORIDE 106 mmol/L (98-107); CREATININE 0.7 mg/dL (0.6-1.3); GLUCOSE 109 mg/dL (74-106); PHOSPHORUS 3.2 mg/dL (2.5-4.9); POTASSIUM 3.6 mmol/L (3.5-5.1); SODIUM SERUM 143 mmol/L (136-145); TOTAL PROTEIN, SERUM 7.4 g/dL (6.4-8.2); UREA NITROGEN, BLOOD 19 mg/dL (7-18)
[2024-04-21 16:31] VITALS: BP 141/96; TEMP 98.5; O2SAT 96
[2024-04-21] MEDS: VANCOMYCIN 1 GM in IV D5W 250ml IV SCH (16:32)
[2024-04-21 21:01] VITALS: BP 141/97; TEMP 97.5; O2SAT 96
[2024-04-22 07:39] LABS: CARBON DIOXIDE 27 mmol/L (21-32); CHLORIDE 108 mmol/L (98-107); CREATININE 0.7 mg/dL (0.6-1.3); GLUCOSE 94 mg/dL (74-106); POTASSIUM 3.5 mmol/L (3.5-5.1); SODIUM SERUM 143 mmol/L (136-145); UREA NITROGEN, BLOOD 22 mg/dL (7-18)
[2024-04-22 08:27] VITALS: BP 117/82; TEMP 97.5; O2SAT 96
[2024-04-22 16:00] VITALS: BP 122/66; TEMP 97.6; O2SAT 100
[2024-04-22 20:30] VITALS: BP 133/87; TEMP 97.7; O2SAT 98
[2024-04-23 06:06] LABS: BASOPHILS % (AUTO) 0.4 % (0.0-2.0); EOSINOPHILS # (AUTO) 0.5 K/uL (0.0-0.7); EOSINOPHILS % (AUTO) 5.7 % (0.0-6.0); HEMATOCRIT 32 % (39-51); HEMOGLOBIN 10.3 g/dL (13.5-17.5); LYMPHOCYTES # (AUTO) 1.6 K/uL (0.8-4.8); LYMPHOCYTES % (AUTO) 18.4 % (20.0-44.0); MEAN CORPUSCULAR HEMOGLOBIN 27 PG (26.0-33.0); MEAN CORPUSCULAR HGB CONC 32 g/dl (31.0-36.0); MEAN CORPUSCULAR VOLUME 84 fL (80-96); MONOCYTES # (AUTO) 0.8 K/uL (0.1-1.30); MONOCYTES % (AUTO) 9.3 % (2.0-12.0); NEUTROPHILS # (AUTO) 5.8 K/uL (1.8-8.9); NEUTROPHILS % (AUTO) 66.2 % (43.0-81.0); PLATELET COUNT (AUTO) 265 K/uL (150-450); RED BLOOD CELL COUNT(AUTO) 3.85 MIL/uL (4.5-6.0); RED CELL DISTRIBUTION WIDTH 16.2 % (11.5-15.0); WHITE BLOOD COUNT (AUTO) 8.8 K/uL (4.3-11.0)
[2024-04-23 06:30] LABS: ALANINE AMINOTRANSFERASE 15 U/L (12-78); ALBUMIN 1.8 g/dL (3.4-5.0); ALKALINE PHOSPHATASE 114 U/L (46-116); ASPARTATE AMINOTRANSFERASE 18 U/L (15-37); BILIRUBIN,TOTAL 0.2 mg/dL (0.2-1.0); CALCIUM, SERUM 8.9 mg/dL (8.5-10.1); CARBON DIOXIDE 25 mmol/L (21-32); CHLORIDE 111 mmol/L (98-107); CREATININE 0.8 mg/dL (0.6-1.3); GLUCOSE 77 mg/dL (74-106); PHOSPHORUS 3.2 mg/dL (2.5-4.9); POTASSIUM 3.6 mmol/L (3.5-5.1); SODIUM SERUM 146 mmol/L (136-145); TOTAL PROTEIN, SERUM 6.7 g/dL (6.4-8.2); UREA NITROGEN, BLOOD 22 mg/dL (7-18)
[2024-04-23 08:00] VITALS: BP 151/99; TEMP 98.6; O2SAT 96
[2024-04-23 16:00] VITALS: BP 135/96; TEMP 97.9; O2SAT 94
[2024-04-24 07:00] VITALS: BP 72/50; TEMP 99.1; O2SAT 98
[2024-04-24 07:11] LABS: CALCIUM, SERUM 8.6 mg/dL (8.5-10.1); CARBON DIOXIDE 23 mmol/L (21-32); CHLORIDE 107 mmol/L (98-107); CREATININE 0.7 mg/dL (0.6-1.3); GLUCOSE 125 mg/dL (74-106); POTASSIUM 3.2 mmol/L (3.5-5.1); SODIUM SERUM 141 mmol/L (136-145); UREA NITROGEN, BLOOD 17 mg/dL (7-18)
[2024-04-24] MEDS: SILVER NITRATE APPLICATOR 1 EA BOX TP ONE (09:01)
[2024-04-24] MEDS: POTASSIUM CHLORIDE 20 MEQ TAB.PRT.SR PO SCH (09:39)
[2024-04-24] MEDS: THERAHONEY GEL 1.5 OZ TUBE TP SCH (14:42)
[2024-04-24] MEDS: ACETAMINOPHEN 325 MG TABLET PO PRN (14:56)
[2024-04-24 16:00] VITALS: BP 114/91; TEMP 98.2; O2SAT 97
[2024-04-24 21:12] VITALS: BP 113/73; TEMP 97.7; O2SAT 96
[2024-04-25 07:42] LABS: CALCIUM, SERUM 8.9 mg/dL (8.5-10.1); CARBON DIOXIDE 24 mmol/L (21-32); CHLORIDE 105 mmol/L (98-107); CREATININE 0.8 mg/dL (0.6-1.3); GLUCOSE 106 mg/dL (74-106); POTASSIUM 3.6 mmol/L (3.5-5.1); SODIUM SERUM 139 mmol/L (136-145); UREA NITROGEN, BLOOD 19 mg/dL (7-18)
[2024-04-25 20:00] VITALS: BP 139/88; TEMP 98.1; O2SAT 96
[2024-04-26 06:29] LABS: CARBON DIOXIDE 23 mmol/L (21-32); CHLORIDE 106 mmol/L (98-107); CREATININE 0.7 mg/dL (0.6-1.3); GLUCOSE 91 mg/dL (74-106); POTASSIUM 3.5 mmol/L (3.5-5.1); SODIUM SERUM 140 mmol/L (136-145); UREA NITROGEN, BLOOD 16 mg/dL (7-18)
[2024-04-26 07:00] VITALS: BP 111/64; TEMP 97.9; O2SAT 98
[2024-04-26 16:00] VITALS: BP 138/68; TEMP 97.9; O2SAT 97
[2024-04-26 20:49] VITALS: BP 126/57; TEMP 98.6; O2SAT 96
[2024-04-26 22:39] VITALS: BP 126/57; TEMP 98.6
[2024-04-27 08:00] VITALS: BP 153/82; TEMP 97.9; O2SAT 100
[2024-04-27 16:00] VITALS: BP 126/63; TEMP 98.6; O2SAT 95
[2024-04-27 20:00] VITALS: BP 132/74; TEMP 98.4; O2SAT 98
[2024-04-28 12:39] VITALS: BP 132/70
== END 2024-04-28 18:55 | DRG 710 ==
LOC: ER 19:07 → TELE-TD 21:39 → ICU 22:02 → TELE 04-15 18:20 → MED 04-18 13:53
PROVIDERS: ATTEND Nurse Practitioner Acute Care
PROC: 0KBP0ZZ Excision of Left Hip Muscle, Open Approach (ICD-10-PCS; principal; 2024-04-17)
PROC: 0KBN0ZZ Excision of Right Hip Muscle, Open Approach (ICD-10-PCS; 2024-04-17)
PROC: 0KBP0ZZ Excision of Left Hip Muscle, Open Approach (ICD-10-PCS; 2024-04-25)
PROC: 0KBN0ZZ Excision of Right Hip Muscle, Open Approach (ICD-10-PCS; 2024-04-25)
DX: A41.9 Sepsis, unspecified organism (principal); J96.01 Acute respiratory failure with hypoxia; R65.21 Severe sepsis with septic shock; J15.69 Pneumonia due to other Gram-negative bacteria; E43 Unspecified severe protein-calorie malnutrition; L89.154 Pressure ulcer of sacral region, stage 4; D68.69 Other thrombophilia; J15.9 Unspecified bacterial pneumonia; D64.9 Anemia, unspecified; E86.0 Dehydration; E88.09 Other disorders of plasma-protein metabolism, not elsewhere classified; G89.4 Chronic pain syndrome; N17.9 Acute kidney failure, unspecified; Z74.01 Bed confinement status; Z79.899 Other long term (current) drug therapy; Z87.440 Personal history of urinary (tract) infections; Z87.891 Personal history of nicotine dependence; Z20.822 Contact with and (suspected) exposure to COVID-19; Z68.23 Body mass index [BMI] 23.0-23.9, adult; L89.610 Pressure ulcer of right heel, unstageable; F29 Unspecified psychosis not due to a substance or known physiological condition; F32.A Depression, unspecified; G35 Multiple sclerosis; G62.9 Polyneuropathy, unspecified; I10 Essential (primary) hypertension; J91.8 Pleural effusion in other conditions classified elsewhere; Z98.890 Other specified postprocedural states; F03.90 Unspecified dementia, unspecified severity, without behavioral disturbance, psychotic disturbance, mood disturbance, and anxiety; F05 Delirium due to known physiological condition
CPT/HCPCS: 36415; 36600; 70450-TC; 71045-TC; 73620-TC; 80048-TC; 80053-TC; 80076-TC; 80202-TC; 81001; 82803-TC; 82962-TC; 83605-TC; 83735-TC; 84100-TC; 84484-TC; 85025-TC; 85730-TC; 87040-TC; 87070-TC; 87081-TC; 87086-TC; 93307-TC; 97110-TC; 97112-TC; 97530-TC; A4223; A6253; A6403; G0378; J0692; J1650; J1885; J2470; J3370; J3371; J3490; J7030; J7050; J7060

== ENCOUNTER 2024-06-04 13:00 | Inpatient (IN) | payer MEDICARE, OTHER ==
[~2024-06-04] VITALS: Ht 175.3 cm; Wt 71.7 kg
[~2024-06-04 13:00] MED LIST changes: -DULO30CA2 PO
[2024-06-04] MEDS ORDERED: ACETAMINOPHEN 650 MG/SUPP.RECT RC ONE (13:25)
[2024-06-04 13:26] LABS: BASOPHILS % (AUTO) 0.2 % (0.0-2.0); EOSINOPHILS % (AUTO) 0.2 % (0.0-6.0); HEMATOCRIT 38 % (39-51); HEMOGLOBIN 12.2 g/dL (13.5-17.5); LYMPHOCYTES # (AUTO) 1.4 K/uL (0.8-4.8); LYMPHOCYTES % (AUTO) 13.3 % (20.0-44.0); MEAN CORPUSCULAR HEMOGLOBIN 27 PG (26.0-33.0); MEAN CORPUSCULAR HGB CONC 32 g/dl (31.0-36.0); MEAN CORPUSCULAR VOLUME 85 fL (80-96); MONOCYTES # (AUTO) 0.6 K/uL (0.1-1.30); MONOCYTES % (AUTO) 5.8 % (2.0-12.0); NEUTROPHILS # (AUTO) 8.4 K/uL (1.8-8.9); NEUTROPHILS % (AUTO) 80.5 % (43.0-81.0); PLATELET COUNT (AUTO) 231 K/uL (150-450); RED BLOOD CELL COUNT(AUTO) 4.49 MIL/uL (4.5-6.0); RED CELL DISTRIBUTION WIDTH 17.1 % (11.5-15.0); WHITE BLOOD COUNT (AUTO) 10.5 K/uL (4.3-11.0)
[2024-06-04 13:44] LABS: ABG BASE EXCESS -0.4 mmol/L (-2.0-3.0); ABG PH 7.433 (7.350-7.450); ABG PO2 149.7 mmHg (83.0-108.0); COHb 0.3 % (0.5-1.5); MetHb 0.4 % (0.0-1.5); O2Hb 98.3 % (94.0-97.0); SITE, ABG RIGHT RADIAL
[2024-06-04 13:46] LABS: LACTIC ACID 1.1 mmol/L (0.4-2.0)
[2024-06-04] MEDS: CEFEPIME 1 GM in IV D5W 50 ML IV ONE (13:57)
[2024-06-04] MEDS: VANCOMYCIN 1 GM in IV D5W 250 ML IV ONE (13:57)
[2024-06-04] MEDS: IV NS 0.9% 1,000 ML BAG IV ONE ×2 (13:57→16:58)
[2024-06-04 13:58] LABS: INR 1.18 (0.91-1.10)
[2024-06-04] MEDS: ACETAMINOPHEN 650 MG/SUPP.RECT RC ONE (13:58)
[2024-06-04 14:34] LABS: ALANINE AMINOTRANSFERASE 13 U/L (12-78); ALBUMIN 2.4 g/dL (3.4-5.0); ALKALINE PHOSPHATASE 95 U/L (46-116); ASPARTATE AMINOTRANSFERASE 14 U/L (15-37); BILIRUBIN,DIRECT 0.2 mg/dL (0.0-0.2); BILIRUBIN,TOTAL 0.5 mg/dL (0.2-1.0); CALCIUM, SERUM 9.1 mg/dL (8.5-10.1); CARBON DIOXIDE 26 mmol/L (21-32); CHLORIDE 104 mmol/L (98-107); CREATININE 1.2 mg/dL (0.6-1.3); GLUCOSE 132 mg/dL (74-106); SODIUM SERUM 140 mmol/L (136-145); TOTAL PROTEIN, SERUM 7.6 g/dL (6.4-8.2); UREA NITROGEN, BLOOD 21 mg/dL (7-18)
[2024-06-04 14:38] LABS: APPEARANCE,URINE CLEAR (CLEAR); BILIRUBIN,URINE NEGATIVE (NEGATIVE); BLOOD, URINE 1+ Ery/uL (NEGATIVE); COLOR,URINE YELLOW (YELLOW); KETONES,URINE NEGATIVE (NEGATIVE); LEUKOCYTE ESTERASE ,URINE 1+ (NEGATIVE); NITRITE, URINE POSITIVE (NEGATIVE); PROTEIN,URINE 2+ mg/dl (NEGATIVE); UGLUCOSE NEGATIVE (NEGATIVE); UROBILINOGEN,URINE 0.2 EU/dL (0.2)
[2024-06-04 14:53] LABS: ADD URINE CULTURE YES; BACTERIA,URINE 2+ /HPF (None Seen); SQUAMOUS EPITHELIAL CELL,UR 0-2 /HPF (None Seen); URINE AMORPHOUS URATE Moderate /HPF (None Seen)
[2024-06-04] MEDS ORDERED: IBUPROFEN 600 MG TABLET ONE (15:38)
[2024-06-04] MEDS: IBUPROFEN 600 MG TABLET PO ONE (15:41)
[2024-06-04] MEDS ORDERED: Z GUARD REMEDY 4 OZ OINT TP PRN (17:00)
[2024-06-04] MEDS ORDERED: MAGNESIUM HYDROXIDE 30 ML UDC PO PRN (17:00)
[2024-06-04] MEDS ORDERED: MAG HYDROX/AL HYDROX/SIMETH 30 ML UDC PO PRN (17:00)
[2024-06-04] MEDS ORDERED: METH10TA2 PO (17:04)
[2024-06-04] MEDS: IV NS 0.9% 1,000 ML IV PRN (17:31)
[2024-06-04] MEDS ORDERED: PIPERACILLIN /TAZOBACTAM 4.5 G in IV D5W 50 ML IV SCH (18:00)
[2024-06-04] MEDS ORDERED: NOREPINEPHRINE 8MG/250ML RTU 250 ML IV ONE (18:22)
[2024-06-04] MEDS: NOREPINEPHRINE 8 MG in IV D5W 242 ML IV PRN (18:33)
[2024-06-04] MEDS ORDERED: PIPERACI/TAZO 3.375GM/D5W 50ML PB IV ONE (19:10)
[2024-06-04] MEDS: ZOSYN IVPB 3.375 G in IV D5W 50ml IV SCH (19:28)
[2024-06-04] MEDS: ENOXAPARIN SODIUM 40 MG/0.4 ML DISP.SYRIN SQ SCH (20:30)
[2024-06-04] MEDS ORDERED: ENOXAPARIN SODIUM 40 MG/0.4 ML DISP.SYRIN SQ ONE (20:41)
[2024-06-04 23:00] VITALS: BP 112/81; O2SAT 92
[2024-06-04 23:21] VITALS: BP 102/65; TEMP 97; O2SAT 97
[2024-06-05] VITALS (61 sets, daily range): BP systolic 70–158; BP diastolic 36–99; TEMP 96.5–98.6; O2SAT 81–100
[2024-06-05] MEDS: VANCOMYCIN 750 MG in IV D5W 250 ML IV SCH (02:37)
[2024-06-05 04:45] LABS: BASOPHILS % (AUTO) 0.2 % (0.0-2.0); EOSINOPHILS % (AUTO) 0.2 % (0.0-6.0); HEMATOCRIT 28 % (39-51); HEMOGLOBIN 8.2 g/dL (13.5-17.5); LYMPHOCYTES # (AUTO) 0.9 K/uL (0.8-4.8); LYMPHOCYTES % (AUTO) 7.3 % (20.0-44.0); MEAN CORPUSCULAR HEMOGLOBIN 27 PG (26.0-33.0); MEAN CORPUSCULAR HGB CONC 30 g/dl (31.0-36.0); MEAN CORPUSCULAR VOLUME 90 fL (80-96); MONOCYTES # (AUTO) 0.7 K/uL (0.1-1.30); MONOCYTES % (AUTO) 5.8 % (2.0-12.0); NEUTROPHILS # (AUTO) 10.2 K/uL (1.8-8.9); NEUTROPHILS % (AUTO) 86.5 % (43.0-81.0); PLATELET COUNT (AUTO) 134 K/uL (150-450); RED BLOOD CELL COUNT(AUTO) 3.07 MIL/uL (4.5-6.0); RED CELL DISTRIBUTION WIDTH 17.1 % (11.5-15.0); WHITE BLOOD COUNT (AUTO) 11.8 K/uL (4.3-11.0)
[2024-06-05] MEDS: ACETAMINOPHEN 325 MG TABLET PO PRN (04:46)
[2024-06-05] MEDS: KETOROLAC TROMETHAMINE INJ 30 MG/ML VIAL IM PRN (05:55)
[2024-06-05 08:35] LABS: ABG OXYGEN SATURATION 94.1 % (94.0-98.0); ABG PCO2 39.9 mmHg (35.0-48.0); ABG PO2 72.4 mmHg (83.0-108.0); ABG TOTAL HEMOGLOBIN 10.1 G/dL (13.5-17.5); COHb 0.3 % (0.5-1.5); MetHb 0.3 % (0.0-1.5); O2Hb 93.5 % (94.0-97.0); SITE, ABG RIGHT HEEL
[2024-06-05 09:16] LABS: CALCIUM, SERUM 8.1 mg/dL (8.5-10.1); CARBON DIOXIDE 26 mmol/L (21-32); CHLORIDE 108 mmol/L (98-107); GLUCOSE 130 mg/dL (74-106); PHOSPHORUS 3.5 mg/dL (2.5-4.9); POTASSIUM 3.5 mmol/L (3.5-5.1); SODIUM SERUM 142 mmol/L (136-145); UREA NITROGEN, BLOOD 21 mg/dL (7-18)
[2024-06-05] MEDS ORDERED: METHADONE HCL 10 MG TABLET PO SCH (10:30)
[2024-06-05] MEDS: GABAPENTIN 400 MG CAPSULE PO SCH (10:53)
[2024-06-05] MEDS: PIPERACILLIN /TAZOBACTAM 3.375 G in IV D5W 100 ML IV SCH (11:12)
[2024-06-05] MEDS: POLYVINYL ALCOHOL 15 ML BOTTLE OP SCH (12:57)
[2024-06-05] MEDS: TIMOLOL MAL/DORZOLAM HCL OPHTH 10 ML BOTTLE EACHEYE SCH (16:02)
[2024-06-05] MEDS ORDERED: NOREPINEPHRINE 8 MG in IV D5W 242 ML IV PRN (16:30)
[2024-06-05] MEDS ORDERED: MEROPENEM 1 G VIAL IV ONE (21:24)
[2024-06-05 21:25] LABS: CREATININE, URINE 139.9 MG/DL (30.0-125.0); URINE TOTAL PROTEIN 204.9 mg/dL (0-11.9)
[2024-06-05] MEDS: MEROPENEM 1 G in IV NS 0.9% 100 ML IV SCH (22:09)
[2024-06-06] VITALS (21 sets, daily range): BP systolic 83–134; BP diastolic 52–85; TEMP 98.1–99; O2SAT 88–97
[2024-06-06] MEDS ORDERED: MEROPENEM 1 G VIAL IV ONE (05:25)
[2024-06-06] MEDS: THERAHONEY GEL 1.5 OZ TUBE TP SCH (08:30)
[2024-06-06] MEDS: ALBUTEROL HALF STRENGTH 1.25 MG/3 ML VIAL.NEB NEB SCH (11:10)
[2024-06-06] MEDS: ACETYLCYSTEINE 10% SOLN 400 MG/4 ML VIAL NEB SCH (11:10)
[2024-06-06] MEDS: IPRATROPIUM NEB FS 0.5 MG/2.5 ML AMPUL.NEB NEB SCH (11:10)
[2024-06-06] MEDS: MEROPENEM 1 G in IV NS 0.9% 100 ML IV SCH (12:12)
[2024-06-06 12:26] LABS: IRON, SERUM 20 ug/dl (50-175); TOTAL IRON BINDING CAPACITY 148 ug/dl (250-450)
[2024-06-06 12:45] LABS: FERRITIN 539 ng/mL (8-388)
[2024-06-06] MEDS: ARGININE/GLUTAMINE/CALCIUM BMB 1 EACH POWD.PACK PO SCH (13:30)
[2024-06-06] MEDS: ENSURE ENLIVE CHOC 237 ML CAN PO SCH (13:30)
[2024-06-06] MEDS: VANCOMYCIN 1 GM in IV D5W 250ml IV SCH (14:23)
[2024-06-07] VITALS (10 sets, daily range): BP systolic 137–152; BP diastolic 70–87; TEMP 97.7–98.1; O2SAT 94–99
[2024-06-07 07:50] LABS: BASOPHILS % (AUTO) 0.2 % (0.0-2.0); EOSINOPHILS # (AUTO) 0.3 K/uL (0.0-0.7); EOSINOPHILS % (AUTO) 4.4 % (0.0-6.0); HEMATOCRIT 30 % (39-51); HEMOGLOBIN 9.5 g/dL (13.5-17.5); LYMPHOCYTES # (AUTO) 1.2 K/uL (0.8-4.8); LYMPHOCYTES % (AUTO) 19.1 % (20.0-44.0); MEAN CORPUSCULAR HEMOGLOBIN 27 PG (26.0-33.0); MEAN CORPUSCULAR HGB CONC 32 g/dl (31.0-36.0); MEAN CORPUSCULAR VOLUME 84 fL (80-96); MONOCYTES # (AUTO) 0.4 K/uL (0.1-1.30); MONOCYTES % (AUTO) 6.9 % (2.0-12.0); NEUTROPHILS # (AUTO) 4.4 K/uL (1.8-8.9); NEUTROPHILS % (AUTO) 69.4 % (43.0-81.0); PLATELET COUNT (AUTO) 184 K/uL (150-450); RED CELL DISTRIBUTION WIDTH 16.6 % (11.5-15.0); WHITE BLOOD COUNT (AUTO) 6.3 K/uL (4.3-11.0)
[2024-06-07 08:04] LABS: CALCIUM, SERUM 8.7 mg/dL (8.5-10.1); CARBON DIOXIDE 27 mmol/L (21-32); CHLORIDE 109 mmol/L (98-107); CREATININE 0.9 mg/dL (0.6-1.3); GLUCOSE 100 mg/dL (74-106); PHOSPHORUS 2.8 mg/dL (2.5-4.9); POTASSIUM 3.6 mmol/L (3.5-5.1); SODIUM SERUM 144 mmol/L (136-145); UREA NITROGEN, BLOOD 14 mg/dL (7-18)
[2024-06-07] MEDS: HYDROCODONE/APAP 10/325MG TABLET PO PRN (16:55)
[2024-06-08] VITALS (9 sets, daily range): BP systolic 99–142; BP diastolic 61–78; TEMP 97.8–98.4; O2SAT 93–99
[2024-06-08] MEDS: ZOLPIDEM TARTRATE 5 MG TABLET PO ONE (00:21)
[2024-06-08 08:05] LABS: CARBON DIOXIDE 30 mmol/L (21-32); CHLORIDE 111 mmol/L (98-107); CREATININE 0.9 mg/dL (0.6-1.3); GLUCOSE 83 mg/dL (74-106); POTASSIUM 3.6 mmol/L (3.5-5.1); SODIUM SERUM 144 mmol/L (136-145); UREA NITROGEN, BLOOD 12 mg/dL (7-18)
[2024-06-08] MEDS: ACIDOPHILUS/BULGARICUS 1 EACH TAB.CHEW PO SCH (17:03)
[2024-06-08] MEDS: VANCOMYCIN HCL 125 MG/2.5 ML ORAL.SUSP PO SCH ×2 (17:03→21:15)
[2024-06-08] MEDS: METRONIDAZOLE 500 MG TABLET PO SCH (22:46)
[2024-06-09 01:55] VITALS: BP 132/68; TEMP 97.9; O2SAT 93
[2024-06-09 08:00] VITALS: BP 160/95; TEMP 97.7; O2SAT 94
[2024-06-09 11:01] LABS: CALCIUM, SERUM 8.5 mg/dL (8.5-10.1); CARBON DIOXIDE 29 mmol/L (21-32); CHLORIDE 107 mmol/L (98-107); CREATININE 0.6 mg/dL (0.6-1.3); GLUCOSE 100 mg/dL (74-106); POTASSIUM 3.6 mmol/L (3.5-5.1); SODIUM SERUM 143 mmol/L (136-145); UREA NITROGEN, BLOOD 11 mg/dL (7-18)
[2024-06-09 19:04] VITALS: BP 146/95; TEMP 97.5; O2SAT 96
[2024-06-09] MEDS: MUPIROCIN OINT 2% 22 GM TUBE NS SCH (21:26)
[2024-06-10 05:14] VITALS: BP 164/84; TEMP 98.8; O2SAT 94
[2024-06-10 12:00] VITALS: BP 166/83; TEMP 97.7; O2SAT 94
[2024-06-10] MEDS: SILVER NITRATE APPLICATOR 1 EA BOX TP ONE (15:38)
[2024-06-10] MEDS: MORPHINE SULFATE INJ 4 MG/ML DISP.SYRIN IV PRN (15:39)
[2024-06-10 20:23] VITALS: O2SAT 94
[2024-06-10 20:32] VITALS: BP 176/92; TEMP 97.9; O2SAT 95
[2024-06-10 20:36] VITALS: O2SAT 96
[2024-06-11 04:36] VITALS: BP 107/69; TEMP 98.1; O2SAT 95
[2024-06-11 09:07] LABS: CREATININE 0.7 mg/dL (0.6-1.3); POTASSIUM 3.5 mmol/L (3.5-5.1)
[2024-06-11 12:00] VITALS: BP 110/69; TEMP 98; O2SAT 95
[2024-06-11 20:00] VITALS: BP_SYST 132; BP_SYST 147; BP_DIAS 51; BP_DIAS 86; TEMP 98.2; TEMP 98.4; TEMP 99.3; O2SAT 94; O2SAT 96
[2024-06-11] MEDS: METHOCARBAMOL (500MG) 500 MG TABLET PO SCH (23:03)
[2024-06-12 04:00] VITALS: BP 145/95; TEMP 98.1; O2SAT 96
[2024-06-12] MEDS ORDERED: VANCOMYCIN HCL 1.25 GM in IV D5W 250 ML IV SCH (06:00)
[2024-06-12] MEDS ORDERED: SILVER NITRATE APPLICATOR 1 EA BOX TP STA (09:11)
[2024-06-12 10:24] LABS: CALCIUM, SERUM 8.3 mg/dL (8.5-10.1); CREATININE 0.7 mg/dL (0.6-1.3); POTASSIUM 3.7 mmol/L (3.5-5.1)
[2024-06-12] MEDS: SILVER NITRATE APPLICATOR 1 EA BOX TP STA (10:26)
[2024-06-12 12:00] VITALS: BP 128/86; TEMP 98.6; O2SAT 96
[2024-06-12] MEDS: NITROFURANTOIN/MONOHYDRATE MACROCRYSTALS 100 MG CAPSULE PO SCH (12:06)
[2024-06-12] MEDS: VANCOMYCIN HCL 1.25 GM in IV D5W 250 ML IV SCH (12:46)
[2024-06-12] MEDS: MEROPENEM 1 G in IV NS 0.9% 100 ML IV SCH (13:41)
[2024-06-12 19:58] VITALS: O2SAT 96
[2024-06-12 20:00] VITALS: BP 149/69; TEMP 98.2; O2SAT 95
[2024-06-13 04:23] VITALS: BP 141/66; TEMP 97.3; O2SAT 96
[2024-06-13 16:00] VITALS: BP 142/87; TEMP 98.2; O2SAT 99
[2024-06-13 16:18] LABS: CALCIUM, SERUM 8.5 mg/dL (8.5-10.1); CREATININE 0.8 mg/dL (0.6-1.3); POTASSIUM 4.3 mmol/L (3.5-5.1)
[2024-06-14 04:00] VITALS: BP 135/82; TEMP 98.5; O2SAT 99
[2024-06-14 08:00] VITALS: BP 148/67; TEMP 97.7; TEMP 97.9; O2SAT 95
[2024-06-14 12:00] VITALS: BP 148/67; TEMP 97.7; O2SAT 95
[2024-06-14 20:00] VITALS: BP 114/64; TEMP 98.2; O2SAT 100
[2024-06-14 20:07] VITALS: O2SAT 94
[2024-06-14 20:22] VITALS: O2SAT 97
[2024-06-15 04:00] VITALS: BP 116/68; TEMP 98; O2SAT 100
[2024-06-15 12:24] VITALS: BP 139/78; TEMP 97.9; O2SAT 95
[2024-06-15 14:23] VITALS: O2SAT 95
[2024-06-15 14:33] VITALS: O2SAT 100
[2024-06-15 15:50] VITALS: BP 147/68
[2024-06-15 20:00] VITALS: BP 125/96; TEMP 98.2; O2SAT 96
[2024-06-16 04:00] VITALS: BP 114/70; TEMP 97.5; O2SAT 97
[2024-06-16 12:00] VITALS: BP 139/78; TEMP 97.9; O2SAT 95
[2024-06-16 21:08] VITALS: BP 106/60; TEMP 98.4; O2SAT 97
[2024-06-17 04:43] VITALS: BP 117/71; TEMP 98.8; O2SAT 97
[2024-06-17] MEDS: HYDROCODONE/APAP 5/325MG TABLET PO PRN (11:43)
[2024-06-17 12:00] VITALS: BP 108/67; TEMP 97.9; O2SAT 96
[2024-06-17 19:44] VITALS: O2SAT 96
[2024-06-17 19:59] VITALS: O2SAT 97
[2024-06-17 20:00] VITALS: BP 125/64; TEMP 97.9; O2SAT 96
[2024-06-17] MEDS: GENTAMICIN 0.1% OINT 15 GM TUBE TP SCH (20:59)
[2024-06-17] MEDS: MUPIROCIN OINT 2% 22 GM TUBE NS SCH (21:48)
[2024-06-18] MEDS ORDERED: MEROPENEM 1 G VIAL IV ONE (00:54)
[2024-06-18 04:00] VITALS: BP 141/65; TEMP 97.7; O2SAT 94
[2024-06-18 12:00] VITALS: BP 120/52; TEMP 97.8; O2SAT 95
[2024-06-18 12:35] LABS: CALCIUM, SERUM 8.7 mg/dL (8.5-10.1); CREATININE 0.9 mg/dL (0.6-1.3)
[2024-06-18] MEDS: OLANZAPINE 2.5 MG TABLET PO PRN (15:34)
[2024-06-18 20:00] VITALS: BP 131/68; TEMP 97.7; O2SAT 97
[2024-06-19 04:00] VITALS: BP 131/72; TEMP 98.4; O2SAT 96
[2024-06-19 14:50] LABS: POTASSIUM 4.7 mmol/L (3.5-5.1)
[2024-06-19 14:55] LABS: CALCIUM, SERUM 8.6 mg/dL (8.5-10.1)
[2024-06-19 16:00] VITALS: BP 122/73; TEMP 98.2; O2SAT 96
[2024-06-19 20:00] VITALS: BP 92/67; TEMP 98.4; O2SAT 99
[2024-06-19] MEDS ORDERED: DOXYCYCLINE 100 MG VIAL ONE (22:53)
[2024-06-19] MEDS: DOXYCYCLINE 100 MG in IV D5W 100 ML IV SCH (23:15)
[2024-06-20 04:00] VITALS: BP 128/70; TEMP 97.9; O2SAT 98
[2024-06-20 08:00] VITALS: BP 104/63; TEMP 98.1; O2SAT 98
[2024-06-20] MEDS: SILVER NITRATE APPLICATOR 1 EA BOX TP ONE (10:09)
[2024-06-20 13:17] LABS: CALCIUM, SERUM 8.5 mg/dL (8.5-10.1); CREATININE 0.7 mg/dL (0.6-1.3); POTASSIUM 4.3 mmol/L (3.5-5.1)
[2024-06-20 16:00] VITALS: BP 108/59; TEMP 97.3; O2SAT 98
[2024-06-21 01:54] VITALS: BP 108/59; TEMP 97.3; O2SAT 98
[2024-06-21 05:16] VITALS: BP 120/69; TEMP 97.5; O2SAT 98
[2024-06-21 08:00] VITALS: BP 137/79; TEMP 98.4; O2SAT 97
[2024-06-21 20:00] VITALS: BP 118/60; TEMP 98; O2SAT 98
[2024-06-22] VITALS (9 sets, daily range): BP systolic 122–131; BP diastolic 61–71; TEMP 97.5–98.5; O2SAT 94–99
[2024-06-23 08:00] VITALS: BP 130/70; TEMP 97.7; O2SAT 97
[2024-06-23 16:00] VITALS: BP 140/70; TEMP 97.5; O2SAT 98
[2024-06-23 20:00] VITALS: BP 137/78; TEMP 97.7; O2SAT 96
[2024-06-24 04:00] VITALS: BP 124/61; TEMP 98.2; O2SAT 95
[2024-06-24 07:37] VITALS: O2SAT 96
[2024-06-24 08:00] VITALS: BP 138/88; TEMP 97.9; O2SAT 97
[2024-06-24 12:00] VITALS: BP 114/58; TEMP 97.9; O2SAT 95
[2024-06-24 12:56] LABS: BASOPHILS % (AUTO) 0.8 % (0.0-2.0); EOSINOPHILS # (AUTO) 0.4 K/uL (0.0-0.7); EOSINOPHILS % (AUTO) 6.2 % (0.0-6.0); HEMATOCRIT 34 % (39-51); LYMPHOCYTES # (AUTO) 1.6 K/uL (0.8-4.8); LYMPHOCYTES % (AUTO) 26.6 % (20.0-44.0); MEAN CORPUSCULAR HEMOGLOBIN 28 PG (26.0-33.0); MEAN CORPUSCULAR HGB CONC 32 g/dl (31.0-36.0); MEAN CORPUSCULAR VOLUME 86 fL (80-96); MONOCYTES # (AUTO) 0.4 K/uL (0.1-1.30); NEUTROPHILS # (AUTO) 3.6 K/uL (1.8-8.9); NEUTROPHILS % (AUTO) 59.4 % (43.0-81.0); PLATELET COUNT (AUTO) 230 K/uL (150-450); RED CELL DISTRIBUTION WIDTH 17.5 % (11.5-15.0); WHITE BLOOD COUNT (AUTO) 6.1 K/uL (4.3-11.0)
[2024-06-24 16:00] VITALS: BP 119/61; TEMP 98.6; O2SAT 95
[2024-06-24 20:00] VITALS: BP 113/63; TEMP 98.1; O2SAT 94
[2024-06-25] VITALS (8 sets, daily range): BP systolic 103–146; BP diastolic 51–77; TEMP 97.5–98.6; O2SAT 94–100
[2024-06-26] VITALS (10 sets, daily range): BP systolic 105–140; BP diastolic 55–73; TEMP 97.9–98.7; O2SAT 95–100
[2024-06-27 04:00] VITALS: BP 139/70; TEMP 98; O2SAT 96
[2024-06-27 06:43] LABS: BASOPHILS % (AUTO) 0.5 % (0.0-2.0); EOSINOPHILS # (AUTO) 0.5 K/uL (0.0-0.7); EOSINOPHILS % (AUTO) 6.4 % (0.0-6.0); HEMATOCRIT 34 % (39-51); HEMOGLOBIN 11.2 g/dL (13.5-17.5); LYMPHOCYTES # (AUTO) 1.4 K/uL (0.8-4.8); LYMPHOCYTES % (AUTO) 19.5 % (20.0-44.0); MEAN CORPUSCULAR HEMOGLOBIN 27 PG (26.0-33.0); MEAN CORPUSCULAR HGB CONC 33 g/dl (31.0-36.0); MEAN CORPUSCULAR VOLUME 84 fL (80-96); MONOCYTES # (AUTO) 0.6 K/uL (0.1-1.30); MONOCYTES % (AUTO) 8.4 % (2.0-12.0); NEUTROPHILS # (AUTO) 4.8 K/uL (1.8-8.9); NEUTROPHILS % (AUTO) 65.2 % (43.0-81.0); PLATELET COUNT (AUTO) 217 K/uL (150-450); RED BLOOD CELL COUNT(AUTO) 4.07 MIL/uL (4.5-6.0); RED CELL DISTRIBUTION WIDTH 17.2 % (11.5-15.0); WHITE BLOOD COUNT (AUTO) 7.4 K/uL (4.3-11.0)
[2024-06-27 07:18] LABS: ALBUMIN 2.4 g/dL (3.4-5.0); BILIRUBIN,TOTAL 0.5 mg/dL (0.2-1.0); CALCIUM, SERUM 8.9 mg/dL (8.5-10.1); CREATININE 0.7 mg/dL (0.6-1.3); MAGNESIUM 2.1 mg/dL (1.8-2.4); PHOSPHORUS 3.2 mg/dL (2.5-4.9); POTASSIUM 4.1 mmol/L (3.5-5.1)
[2024-06-27 07:36] VITALS: O2SAT 99
[2024-06-27 07:54] VITALS: O2SAT 100
[2024-06-27 08:00] VITALS: BP 126/79; TEMP 97.7; O2SAT 96
[2024-06-27] MEDS ORDERED: NUTR1PAC14 PO (10:29)
[2024-06-27] MEDS ORDERED: ACID1TAB12 PO (10:29)
[2024-06-27] MEDS ORDERED: MERO1PIG IV (10:30)
[2024-06-27] MEDS ORDERED: DORZ10DR13 EACHEYE (10:30)
[2024-06-27] MEDS ORDERED: LACT-54 PO (10:30)
[2024-06-27] MEDS ORDERED: DOXY100C PO (10:30)
[2024-06-27] MEDS ORDERED: GENT3.5O4 OP (10:30)
[2024-06-27] MEDS ORDERED: METR500T PO (10:30)
[2024-06-27 16:00] VITALS: BP 108/60; TEMP 97.9; O2SAT 96
[2024-06-27 20:00] VITALS: BP 126/92; TEMP 97.1; O2SAT 97
[2024-06-28 08:00] VITALS: BP 129/66; TEMP 97.9; O2SAT 94
[2024-06-28 12:00] VITALS: BP 122/65; TEMP 97.8; O2SAT 96
[2024-06-28 16:00] VITALS: BP 137/78; TEMP 97.9; O2SAT 96
[2024-06-28 20:00] VITALS: BP 123/66; TEMP 97.5; O2SAT 95
[2024-06-29] VITALS (10 sets, daily range): BP systolic 91–142; BP diastolic 49–83; TEMP 97.8–98.4; O2SAT 94–98
[2024-06-29 15:21] LABS: CALCIUM, SERUM 8.6 mg/dL (8.5-10.1); CREATININE 0.8 mg/dL (0.6-1.3); POTASSIUM 3.5 mmol/L (3.5-5.1)
[2024-06-30] VITALS (7 sets, daily range): BP systolic 122–139; BP diastolic 64–98; TEMP 98–98.4; O2SAT 7–99
[2024-06-30 17:55] LABS: CALCIUM, SERUM 8.3 mg/dL (8.5-10.1); CREATININE 0.9 mg/dL (0.6-1.3); POTASSIUM 4.3 mmol/L (3.5-5.1)
[2024-07-01 07:43] VITALS: O2SAT 96
[2024-07-01 08:00] VITALS: BP 102/68; TEMP 98.5; O2SAT 93
[2024-07-01] MEDS: MEROPENEM 1 G in IV NS 0.9% 100 ML IV SCH (12:09)
[2024-07-01 16:00] VITALS: BP 134/77; TEMP 98.3; O2SAT 93
[2024-07-01 20:00] VITALS: BP 126/65; TEMP 98.2; O2SAT 100
[2024-07-02 04:00] VITALS: BP 120/60; TEMP 98.2; O2SAT 99
[2024-07-02 07:37] VITALS: O2SAT 98
[2024-07-02 08:00] VITALS: BP 105/62; TEMP 98.3; O2SAT 98
[2024-07-02 14:30] VITALS: O2SAT 97
[2024-07-02 16:00] VITALS: BP 105/56; TEMP 98.2; O2SAT 95
[2024-07-02 20:00] VITALS: BP 118/62; TEMP 98.4; O2SAT 92
[2024-07-03 04:00] VITALS: BP 107/65; TEMP 98.2; O2SAT 91
[2024-07-03 07:33] VITALS: O2SAT 95
[2024-07-03 08:00] VITALS: BP 125/71; TEMP 98; O2SAT 100
[2024-07-03 09:43] LABS: BASOPHILS % (AUTO) 0.2 % (0.0-2.0); EOSINOPHILS # (AUTO) 0.4 K/uL (0.0-0.7); EOSINOPHILS % (AUTO) 7.2 % (0.0-6.0); HEMATOCRIT 35 % (39-51); HEMOGLOBIN 11.3 g/dL (13.5-17.5); LYMPHOCYTES # (AUTO) 1.7 K/uL (0.8-4.8); LYMPHOCYTES % (AUTO) 33.9 % (20.0-44.0); MEAN CORPUSCULAR HEMOGLOBIN 27 PG (26.0-33.0); MEAN CORPUSCULAR HGB CONC 33 g/dl (31.0-36.0); MEAN CORPUSCULAR VOLUME 84 fL (80-96); MONOCYTES # (AUTO) 0.6 K/uL (0.1-1.30); MONOCYTES % (AUTO) 11.2 % (2.0-12.0); NEUTROPHILS # (AUTO) 2.4 K/uL (1.8-8.9); NEUTROPHILS % (AUTO) 47.5 % (43.0-81.0); PLATELET COUNT (AUTO) 177 K/uL (150-450); RED BLOOD CELL COUNT(AUTO) 4.11 MIL/uL (4.5-6.0); RED CELL DISTRIBUTION WIDTH 16.7 % (11.5-15.0); WHITE BLOOD COUNT (AUTO) 5.1 K/uL (4.3-11.0)
[2024-07-03 10:07] LABS: CALCIUM, SERUM 8.6 mg/dL (8.5-10.1); CREATININE 0.7 mg/dL (0.6-1.3); PHOSPHORUS 2.9 mg/dL (2.5-4.9); POTASSIUM 3.9 mmol/L (3.5-5.1)
[2024-07-03 16:00] VITALS: BP 114/55; TEMP 97.9; O2SAT 100
[2024-07-03 20:00] VITALS: BP 102/66; TEMP 99.5; O2SAT 95
[2024-07-04 04:00] VITALS: BP 104/61; TEMP 99.2; O2SAT 96
[2024-07-04 07:51] VITALS: O2SAT 96
[2024-07-04 08:00] VITALS: BP 126/62; TEMP 97.7; O2SAT 95
[2024-07-04 16:00] VITALS: BP 130/76; TEMP 98.3; O2SAT 100
[2024-07-04 20:00] VITALS: BP 113/64; TEMP 98.4; O2SAT 95
[2024-07-05 04:00] VITALS: BP 99/65; TEMP 97.9; O2SAT 93
[2024-07-05 07:22] VITALS: O2SAT 98
[2024-07-05 08:00] VITALS: BP 104/70; TEMP 98.1; O2SAT 94
[2024-07-05 16:00] VITALS: BP 130/72; TEMP 97.9; O2SAT 95
[2024-07-05 20:00] VITALS: BP 138/65; TEMP 98.4; O2SAT 94
[2024-07-06 04:00] VITALS: BP 132/62; TEMP 98.5; O2SAT 93
[2024-07-06 08:00] VITALS: BP 146/81; TEMP 97.9; O2SAT 94
[2024-07-06 16:00] VITALS: BP 111/69; TEMP 97.5; O2SAT 96
[2024-07-06 20:16] VITALS: O2SAT 97
[2024-07-06 20:28] VITALS: BP 157/84; TEMP 97.5; O2SAT 98
[2024-07-06] MEDS: DOXYCYCLINE HYCLATE (100 MG) 100 MG TABLET PO SCH (21:28)
[2024-07-06 23:20] VITALS: O2SAT 98
[2024-07-07 01:54] VITALS: O2SAT 98
[2024-07-07 04:09] VITALS: BP 143/84; TEMP 97.5; O2SAT 96
[2024-07-07 08:00] VITALS: BP 115/69; TEMP 97.9; O2SAT 97
[2024-07-07 16:00] VITALS: BP 130/69; TEMP 97.9; O2SAT 97
[2024-07-07 20:00] VITALS: BP 100/55; TEMP 98.4; O2SAT 94
[2024-07-07 20:10] VITALS: O2SAT 98
[2024-07-08 04:00] VITALS: BP 105/60; TEMP 98.2; O2SAT 94
[2024-07-08 08:00] VITALS: BP 134/68; TEMP 98.2; O2SAT 97
[2024-07-08 16:00] VITALS: BP 119/60; TEMP 97.7; O2SAT 95
[2024-07-08] MEDS: ALBUTEROL HALF STRENGTH 1.25 MG/3 ML VIAL.NEB NEB SCH (19:30)
[2024-07-08 20:00] VITALS: BP 118/64; TEMP 98.1; O2SAT 95
[2024-07-08 20:53] VITALS: O2SAT 97
[2024-07-09 08:00] VITALS: BP 134/71; TEMP 97.3; O2SAT 98
[2024-07-09 16:00] VITALS: BP 120/70; TEMP 97.5; O2SAT 97
[2024-07-09 20:00] VITALS: BP 111/64; TEMP 98.6; O2SAT 99
[2024-07-09 20:23] VITALS: O2SAT 97
[2024-07-10 04:00] VITALS: BP 120/52; TEMP 97.8; O2SAT 100
[2024-07-10 08:00] VITALS: BP 115/65; TEMP 97.8; O2SAT 100
[2024-07-10 16:00] VITALS: BP 132/93; TEMP 98.4; O2SAT 100
[2024-07-10 20:00] VITALS: BP_SYST 103; BP_SYST 144; BP_DIAS 63; BP_DIAS 99; TEMP 98.8; O2SAT 100; O2SAT 96
[2024-07-11 04:00] VITALS: BP 134/98; TEMP 98.2; O2SAT 100
[2024-07-11 08:00] VITALS: BP 129/76; TEMP 97.9; O2SAT 100
[2024-07-11 16:00] VITALS: BP 115/66; TEMP 97.9; O2SAT 100
[2024-07-11 20:00] VITALS: BP 122/74; TEMP 97.5; O2SAT 100
[2024-07-12 04:00] VITALS: BP 124/68; TEMP 97.9; O2SAT 94
[2024-07-12 08:00] VITALS: BP 131/73; TEMP 97.9; O2SAT 97
[2024-07-12 16:00] VITALS: BP 147/80; TEMP 98.1; O2SAT 96
[2024-07-12 20:00] VITALS: BP 102/64; TEMP 97.3; O2SAT 94
[2024-07-13 08:00] VITALS: BP 125/73; TEMP 97.7
[2024-07-13 09:41] VITALS: BP 125/73; TEMP 97.7; O2SAT 94
[2024-07-13 16:00] VITALS: BP 108/66; TEMP 98.1; O2SAT 95
[2024-07-13 19:49] VITALS: O2SAT 98
[2024-07-13 20:00] VITALS: BP 129/69; TEMP 97.3; O2SAT 96
[2024-07-14 04:00] VITALS: BP 131/66; TEMP 97.8; O2SAT 96
[2024-07-14 08:00] VITALS: BP 155/81; TEMP 97.7
[2024-07-14 16:00] VITALS: BP 130/77; TEMP 97.7
== END 2024-07-14 16:35 | disposition home health service (06) | DRG 853 ==
LOC: ER 13:04 → ICU 22:21 → TELE1 06-06 10:55 → MEDSG1 06-08 08:34
PROVIDERS: ADMIT Internal Medicine; ATTEND Internal Medicine
PROC: 02HV33Z Insertion of Infusion Device into Superior Vena Cava, Percutaneous Approach (ICD-10-PCS; 2024-06-04)
PROC: 0KBP0ZZ Excision of Left Hip Muscle, Open Approach (ICD-10-PCS; principal; 2024-06-12)
PROC: 0KBN0ZZ Excision of Right Hip Muscle, Open Approach (ICD-10-PCS; 2024-06-12)
PROC: 0KBP0ZZ Excision of Left Hip Muscle, Open Approach (ICD-10-PCS; 2024-06-20)
PROC: 0KBN0ZZ Excision of Right Hip Muscle, Open Approach (ICD-10-PCS; 2024-06-20)
DX: A41.52 Sepsis due to Pseudomonas (principal); G93.41 Metabolic encephalopathy; J96.01 Acute respiratory failure with hypoxia; R65.21 Severe sepsis with septic shock; J15.69 Pneumonia due to other Gram-negative bacteria; L89.154 Pressure ulcer of sacral region, stage 4; A04.72 Enterocolitis due to Clostridium difficile, not specified as recurrent; N39.0 Urinary tract infection, site not specified; M46.28 Osteomyelitis of vertebra, sacral and sacrococcygeal region; L03.115 Cellulitis of right lower limb; J98.11 Atelectasis; Z16.13 Resistance to carbapenem; G82.20 Paraplegia, unspecified; D68.59 Other primary thrombophilia; L89.322 Pressure ulcer of left buttock, stage 2; G35 Multiple sclerosis; N36.8 Other specified disorders of urethra; M54.16 Radiculopathy, lumbar region; Q54.1 Hypospadias, penile; D64.9 Anemia, unspecified; M15.9 Polyosteoarthritis, unspecified; M89.8X9 Other specified disorders of bone, unspecified site; I73.9 Peripheral vascular disease, unspecified; G89.4 Chronic pain syndrome; Z87.440 Personal history of urinary (tract) infections; Z87.01 Personal history of pneumonia (recurrent); T17.990A Other foreign object in respiratory tract, part unspecified in causing asphyxiation, initial encounter; I10 Essential (primary) hypertension; Z74.01 Bed confinement status; E86.0 Dehydration; F39 Unspecified mood [affective] disorder; F43.10 Post-traumatic stress disorder, unspecified; Z98.890 Other specified postprocedural states; R79.89 Other specified abnormal findings of blood chemistry; S91.301A Unspecified open wound, right foot, initial encounter; X58.XXXA Exposure to other specified factors, initial encounter; Y92.89 Other specified places as the place of occurrence of the external cause
CPT/HCPCS: 36415; 36600; 38221; 71045-TC; 71250-TC; 74018; 80048-TC; 80053-TC; 80076-TC; 80202-TC; 81001; 82550-TC; 82570-TC; 82728-TC; 82803-TC; 82962-TC; 83540-TC; 83605-TC; 83735-TC; 84100-TC; 84300-TC; 84484-TC; 85025-TC; 85730-TC; 87040-TC; 87081-TC; 87086-TC; 94668-TC; 94760-TC; 94761-TC; 94762-TC; 94799-TC; A4217; A4223; A6253; A6403; G0378; J0692; J1650; J1885; J2185; J2270; J2543; J3370; J3371; J3490; J7030; J7040; J7042; J7050; J7060; J7070